=== PATIENT | female | born 2005 | race African-American/Black ===

== ENCOUNTER 2024-10-17 13:25 | Emergency (ER) | payer OTHER, SELFPAY ==
--- NOTE | ~2024-10-17 | XR_ITS ---
EXAMINATION: XR CHEST CLINICAL INFORMATION: shortness of breath COMPARISON: None available. TECHNIQUE: 2 views of the chest were obtained. FINDINGS: Findings suggest a focal, peripheral right lower lobe interstitial and alveolar infiltrate, consistent with pneumonia. The left lung appears clear. No effusion or pneumothorax is seen. The cardiac assess structures, mediastinum, diaphragm, bones, and soft tissues appear unremarkable. XR/XR chest 2V IMPRESSION: Suspect right lower lobe pneumonia. Electronically signed by: Arvind Castelan MD 10/17/2024 03:52 PM [facility]
--- NOTE | 2024-10-17 13:33 | ED.GENADULT ---
HPI - General Adult General Chief complaint: Upper Respiratory Symptoms Stated complaint: asthma Time Seen by Provider: 10/17/24 13:47 Source: patient Mode of arrival: ambulatory Limitations: no limitations History of Present Illness ED Provider: Samantha Mauricio NP HPI narrative: Patient is a 18-year-old female who presents emergency department for evaluation. She states she has been having symptoms that she was concern for an asthma exacerbation of for the past 2 weeks including nonproductive cough, shortness of breath, difficulty breathing, intermittent chest pain that was brought on during periods of cough. She has been experiencing some wheezing as well. Unfortunately she does not have any nebulizer solution, and her albuterol inhaler has . She was recently seen in her automotive glass specialist's office by nurse practitioner 2 days ago 10/15/2024. She states that this provider was unable to prescribe her nebulizer solution? because she does not have the right license, and she referred me to urgent care to get a prescription for this . she was however provided a prescription for prednisone which she has been taking 40 mg daily for 5 days. She went to urgent care today as she has still been experiencing difficulty breathing, she received a nebulizer treatment there, reports that there was concern for pneumonia on her x-ray and she was referred to the emergency department for further evaluation. Denies fevers, chills, headache, dizziness, neck pain, neck stiffness, nausea, vomiting, abdominal pain, numbness or tingling of the extremities, genitourinary symptoms. On 10/15/2024 at the automotive glass specialist's office she was also given a prescription for Bactrim for treatment of the urinary tract infection though she was asymptomatic. She states that she has been experiencing a urinary tract infection/ Kidney infection monthly since June, she was not experiencing any urinary symptoms at this time. it is unclear whether she had a urine culture sent, she does show me results in her patient portal which indicate 2+ leukocyte esterase otherwise no additional concerning findings for urinary tract infection. she has had STI testing which by her account was negative. She is not having any abnormal pelvic pain or discharge. No dysuria or hematuria or urinary frequency. Related Data Previous Rx's ?Medication ?Instructions ?Recorded albuterol sulfate 2.5 mg/3 mL 2.5 mg (3 mL) inhalation Q4-6H PRN 10/17/24 (0.083 %) solution for nebulization shortness of breath or wheezing #180 mL albuterol sulfate 90 mcg/actuation 2 puff inhalation Q4-6H PRN 10/17/24 aerosol inhaler shortness of breath or wheezing #8.5 grams amoxicillin 500 mg capsule 1,000 mg (2 x 500 mg) PO TID 5 10/17/24 days #30 caps azithromycin 250 mg tablet See Rx Instructions PO .COMPLEX #6 10/17/24 tabs Allergies Allergy/AdvReac Type Severity Reaction Status Date / Time No Known Allergies Allergy Verified 10/17/24 13:40 Review of Systems Review of Systems: Yes all other systems are reviewed and are negative [facility] Past Medical History Attestation statement: The following information was validated with the patient. Source: old records reviewed Social History Social History Advance Directives: No Advance Directives Information Provided: Yes Do you have a plan to hurt others: No Plan Physical Exam ED Vital Signs: Vital Signs - 24 hr 10/17/24 13:35 10/17/24 14:49 10/17/24 16:06 Temperature 98.3 F 98.2 F 98.2 F Pulse Rate 97 95 99 Respiratory Rate 16 16 16 Blood Pressure 131/76 107/61 109/66 Pulse Oximetry 98 97 95 Oxygen Delivery Method Room Air Room Air Room Air 10/17/24 16:10 Temperature 98.2 F Pulse Rate 99 Respiratory Rate 16 Blood Pressure 109/66 Pulse Oximetry 95 Oxygen Delivery Method Room Air BMI result Body Mass Index 21.3 Appearance: Alert.?Oriented to person, place and time. No acute distress.?Normal affect. Eyes: Pupils equal, round and reactive to light.? ENT: TM normal bilaterally. Pharynx normal.?? Neck: Normal inspection.? Neck supple.??No cervical adenopathy CVS: Heart sounds normal. Normal heart rate and rhythm.? Pulses normal.?? Respiratory: No respiratory distress. no stridor. No retractions.? Lung sounds with rhonchi bilaterally, mild expiratory wheezing? Abdomen: Soft and non-tender. Normoactive bowel sounds. Skin: Skin warm and dry.? Normal skin color.? ? Extremities: No lower extremity edema.? Neuro: Moves all extremities spontaneously. Sensation intact bilaterally. No motor deficits. Ambulates with normal steady gait. Course Course Course Narrative: RME, this is a rapid medical exam performed by Efren Betts please refer to primary provider for complete H&P- this is a 18-year-old female presenting for evaluation of shortness of breath. she has had coughing and wheezing for 2 weeks. She was on Bactrim for a UTI. I received a phone call from urgent care that the patient had a right lower lobe pneumonia on x-ray. The patient's oxygen saturation is 98% on room air. Plan for repeat x-ray and labs. Medical Decision Making Medical Decision Making [facility] Narrative: Patient is a 18-year-old female past medical history of asthma, presenting for evaluation of respiratory symptoms. COVID-19 /influenza/ RSV testing Are negative. At this time history and physical exam not consistent with ACS she has no risk factors, unlikely pulmonary embolism; Wells score with low risk. Overall is Well-appearing, nontoxic, afebrile, no tachycardia or tachypnea/hypoxia. Speaking clear full sentences, ambulatory with steady gait. chest x-ray w reveals a right lower lobe pneumonia for which prescription for amoxicillin and azithromycin will be sent to pharmacy. serum labs revealed leukocytosis of 15,800 with left shift, lactic acid is 2.1 though I suspect this is secondary to type B with albuterol usage. Do not feel as though she meets criteria for inpatient level of care at this time. Discussed conservative treatment including rest, hydration, Tylenol/ibuprofen as needed for fever and body aches, saline nasal spray, humidifier, [id number] cold medication. Advised to follow-up with primary care provider as needed, discussed reasons to return back to the emergency department. All questions were answered. Patient discharged home in stable condition. Differential Diagnosis Differential Diagnoses: The differential diagnosis associated with the presentation includes ( See narrative above) Admission/Observation Consideration of admission/observation: Escalation of care including admission/observation considered ( see narrative above) Lab Data [facility] Lab Attestation statement: I reviewed the patient's lab results. ( see narrative above) Leukocytosis, no electrolyte derangement, no STEPHIE. hCG negative. 10/17/24 13:51 10/17/24 13:51 Labs: Lab Results 10/17/24 Range/Units 13:51 WBC 15.8 H (4.8-10.8) X10*3/uL RBC 5.01 (4.20-5.50) X10*6/uL Hgb 15.9 (12.0-16.0) g/dl Hct 45.0 (37.0-47.0) % MCV 89.8 (80.0-98.0) fL MCH 31.7 (27.0-33.0) pg MCHC 35.3 H (31.0-35.0) g/dl RDW 11.9 (11.0-16.0) % Plt Count 395 (160-400) X10*3/uL MPV 9.3 L (9.4-12.3) fL Immature Gran % (Auto) 0.9 H (0.0-0.4) % Neut % (Auto) 82.9 H (45-73) % Lymph % (Auto) 10.9 L (20-40) % [place] % (Auto) 3.9 (2-11) % Eos % (Auto) 1.0 (0-4) % Baso % (Auto) 0.4 (0-2) % Lymph # (Auto) 1.7 (1.2-4.9) X10*3/uL [place] # (Auto) 0.6 (0.1-1.2) X10*3/uL Eos # (Auto) 0.2 (0.0-0.4) X10*3/uL Baso # (Auto) 0.1 (0.0-0.2) X10*3/uL Abs Immat Gran (auto) 0.14 H (0.00-0.03) X10*3/uL Absolute Neuts (auto) 13.1 H (2.0-8.3) x10*3/uL Absolute Nucleated RBC 0.000 (0.0-0.012) X10*3/uL Nucleated RBC % (auto) 0.0 (0.0-0.2) /100WBC Sodium 137 (135-145) mmol/L Potassium 4.1 (3.3-5.1) mmol/L Chloride 105 (96-108) mmol/L Carbon Dioxide 22 (22-29) mmol/L Anion Gap 14 (12-20) BUN 6 L (9-16) mg/dL Creatinine 0.79 (0.5-1.4) mg/dL Estim Creat Clear Calc 113.8 Estimated GFR > 60 Random Glucose 120 H (60-115) mg/dL Lactic Acid 2.1 H* (0.5-2.0) mmol/L Calcium 10.0 (8.4-10.2) mg/dL Total Bilirubin 0.2 (0.0-1.0) mg/dL AST 34 H (5-31) U/L ALT 20 (0-31) U/L Alkaline Phosphatase 64 (39-117) U/L Total Protein 8.0 (6.5-8.0) g/dL Albumin 4.4 (3.5-5.0) g/dL Lipase 26 (8-78) U/L Beta HCG, Quant < 2 mIU/mL Influenza Type A (PCR) NEGATIVE (Negative) Influenza Type B (PCR) NEGATIVE (Negative) RSV RNA Qual (PCR) NEGATIVE (Negative) SARS-CoV-2 RNA (RT-PCR) NEGATIVE (Negative) Independent Interpretation I performed an independent interpretation of an: Plain X-Ray ( See narrative above) Radiology Impression Discussion of test interpretation with radiology: I have reviewed the radiologist's reading. Radiologist Impression: XR/XR chest 2V IMPRESSION: Suspect right lower lobe pneumonia. External Record Review External record reviewed: Outpatient record Prescription Management I considered prescription management with: Pain Medication ( acetaminophen/ibuprofen) Discharge Plan Discharge Clinical Impression: Community acquired pneumonia Patient Disposition: Home, Self-Care Additional Instructions: As discussed, your history and physical examination today is concerning for right lower lobe pneumonia. I have sent prescriptions for 2 antibiotics to your pharmacy including amoxicillin and azithromycin, please complete the entire course as prescribed do not skip any doses or stop taking early even if you begin to feel better. Complete the prednisone course that was prescribed you from your automotive glass specialist office. It is very important to use a back-up form of control, such as barrier condoms/abstinence, while on antibiotics and for one week after as they may be ineffective in preventing while on the antibiotics. While taking antibiotics, please include probiotics that can be found over the counter or yogurt in your diet. If symptoms of a yeast infection or diarrhea occur, please call the office to Additionally prescriptions for an albuterol inhaler as well as albuterol nebulizer solution have been sent to your pharmacy as well. Please seek re-evaluation with your automotive glass specialist for any persistent symptoms. Prescriptions: New amoxicillin 500 mg capsule 1,000 mg PO TID 5 Days Qty: 30 0RF azithromycin 250 mg tablet See Rx Instructions .ROUTE .COMPLEX Qty: 6 0RF Rx Instructions: For 250 mg dose pack: take 500 mg today (day 1), then 250 mg for 4 days (days 2-5) albuterol sulfate 2.5 mg /3 mL (0.083 %) solution for nebulization 2.5 mg inhalation Q4-6H PRN (Reason: shortness of breath or wheezing) Qty: 180 0RF albuterol sulfate 90 mcg/actuation HFA aerosol inhaler 2 puff inhalation Q4-6H PRN (Reason: shortness of breath or wheezing) Qty: 8.5 0RF Referrals: Physician,Unknown J [Primary Care Provider] - Interventions: ED Discharge Assessment Last Done: 10/17/24 16:10 Discharge Date/Time: 10/17/24 16:11 Print Language: [place]
[2024-10-17 13:35] VITALS: BP 131/76; PULSE 97; RESP 16; TEMP 36.8; O2SAT 98; BMI 21.3
[2024-10-17 13:56] LABS: MANUAL DIFF FLAG NO
[2024-10-17 13:58] LABS: Basophils Absolute Auto 0.1 X10*3/uL (0.0-0.2); Basophils Percent Auto 0.4 % (0-2); Eosinophils Absolute Auto 0.2 X10*3/uL (0.0-0.4); Hemoglobin 15.9 g/dl (12.0-16.0); Imm Gran Abs Auto 0.14 X10*3/uL (0.00-0.03); Imm Gran Pct Auto 0.9 % (0.0-0.4); Lymphocytes Absolute Auto 1.7 X10*3/uL (1.2-4.9); Lymphocytes Percent Auto 10.9 % (20-40); Mean Corpuscular HGB Conc 35.3 g/dl (31.0-35.0); Mean Corpuscular Hemoglobin 31.7 pg (27.0-33.0); Mean Corpuscular Volume 89.8 fL (80.0-98.0); Mean Platelet Volume 9.3 fL (9.4-12.3); Monocytes Absolute Auto 0.6 X10*3/uL (0.1-1.2); Monocytes Percent Auto 3.9 % (2-11); Neutrophils Absolute Auto 13.1 x10*3/uL (2.0-8.3); Neutrophils Percent Auto 82.9 % (45-73); Platelet Count 395 X10*3/uL (160-400); Red Blood Count 5.01 X10*6/uL (4.20-5.50); Red Cell Distribution Width 11.9 % (11.0-16.0); White Blood Count 15.8 X10*3/uL (4.8-10.8)
[2024-10-17 14:12] LABS: Alanine Aminotransferase 20 U/L (0-31); Albumin Level 4.4 g/dL (3.5-5.0); Alkaline Phosphatase 64 U/L (39-117); Anion Gap 14 (12-20); Aspartate Amino Transferase 34 U/L (5-31); Bilirubin Total 0.2 mg/dL (0.0-1.0); Blood Urea Nitrogen 6 mg/dL (9-16); Carbon Dioxide 22 mmol/L (22-29); Chloride 105 mmol/L (96-108); Creatinine Clr Calc Pharmacy 113.8; Estimated Glomerular Filt Rate > 60; Glucose Random 120 mg/dL (60-115); Lipase 26 U/L (8-78); Potassium 4.1 mmol/L (3.3-5.1); Sodium 137 mmol/L (135-145)
[2024-10-17 14:16] LABS: Lactic Acid 2.1 mmol/L (0.5-2.0)
[2024-10-17 14:19] LABS: HCG Quantitative < 2 mIU/mL
[2024-10-17 14:38] LABS: Influenza A PCR NEGATIVE (Negative); Influenza B PCR NEGATIVE (Negative); Resp Syncy Virus RNA Qual PCR NEGATIVE (Negative); SARS COV2 PCR INHOUSE NEGATIVE (Negative)
[2024-10-17 14:49] VITALS: BP 107/61; PULSE 95; RESP 16; TEMP 36.8; O2SAT 97
[2024-10-17 15:54] LABS: Reflex Lactate? Lactic Acid Added
--- NOTE | 2024-10-17 16:00 | PC.NURSE ---
Per provider 2nd lactic not needed.
[2024-10-17 16:06] VITALS: BP 109/66; PULSE 99; RESP 16; TEMP 36.8; O2SAT 95
[2024-10-17 16:10] VITALS: BP 109/66; PULSE 99; RESP 16; TEMP 36.8; O2SAT 95
== END 2024-10-17 16:11 | disposition home or self-care (01) ==
PROVIDERS: Physician Assistant; Emergency Provider Emergency Medicine
DX: J18.8 Other pneumonia, unspecified organism (principal); Z03.818 Encounter for observation for suspected exposure to other biological agents ruled out; R06.02 Shortness of breath; J45.909 Unspecified asthma, uncomplicated
CPT/HCPCS: 0241U; 36415; 71046; 80053; 83605; 83690; 84702; 85025; 87040; 99283; 99284

== ENCOUNTER 2025-08-16 15:38 | Emergency (ER) | payer OTHER, SELFPAY ==
--- OUTSIDE RECORDS SUMMARY | 2025-08-15 12:20 | XMS_ITS | Encounter Summary ---
Author Organization [facility] Address [address] [place] [address] Care Team Providers Care Analog Ic Design Architect Name Role Phone Unavailable Primary Care Provider Unavailabl e Reason for Visit * Reason Comments Chest Pain Encounter Details Date Type Department Care Team (Late st Contact Info) Description 08/15/2025 12:20 PM EDT - 08/15/2025 3:45 PM EDT Emergency [facility] Emergency [address] [place] [address] Marcos Huddleston MD [address] [place] [address] Chest pain, unspecified type (Primary Dx) Discharge Disposition: Home or Self Care Social History Tobacco Use Types Packs/Day Years Used Date Smoking Tobacco: Unknown Tobacco Cessation:Counseling Given: Not Answered Comments Unknown Sex and Gender Information Value Date Recorded Sex Assigned at Not on file Legal Sex Female 10:26 PM EST Gender Identity Not on file Sexual Orientation Not on file documented as of this encounter Last Filed Vital Signs Vital Sign Reading Time Taken Comments Blood Pressure 127/69 08/15/2025 1:30 PM EDT Pulse 97 08/15/2025 2:40 PM EDT Temperature 36.9 C (98.4 F) 08/15/2025 12:27 PM EDT Respiratory Rate 18 08/15/2025 12:27 PM EDT Oxygen Saturation 100% 08/15/2025 2:40 PM EDT Inhaled Oxygen Concentration - - Weight 61.2 kg (135 lb) 08/15/2025 12:32 PM EDT Height 175.3 cm (5' 9 ) 08/15/2025 12:32 PM EDT Body Mass Index 19.94 08/15/2025 12:32 PM EDT documented in this encounter Discharge Summaries * Tahir Moralez RN - 08/15/2025 3:30 PM EDT Pt seen and cleared for d/c by ED provider, d/c instructions reviewed. Rx'd medication education provided, all questions answered. Pt seen ambulating out of department with ease. documented in this encounter Discharge Disposition Disposition Code Departure Means Destination Comment s Home or Self Care documented in this encounter Progress Notes * Tahir Moralez RN - 08/15/2025 12:25 PM EDT BIBA from for midsternal cp that has been intermittent x 1 month, with a sudden onset of shortness of breath. Endorses blurred vision and dizziness. Anxious appearing, moderate tremor of lower extremities noted while assessing pt. Asthma hx. Pt also reports various psych diagnoses also. Denies SI/HI. Sent from for PE r/o. Ambulatory, a/ox3 * Marcos Huddleston MD - 08/15/2025 12:18 PM EDT HPI Chief Complaint Patient presents with Chest Pain 19-year-old female with a past medical history as below presenting with chest pain. Patient endorses symptoms intermittently for the past 1 month associated with shortness of breath. Patient denies any fever, chills, abdominal pain, back pain, headache, urinary or bowel symptoms, numbness or weakness in the upper and lower extremities. Patient endorses intermittent blurry vision in the past, however is asymptomatic at this time. Patient denies any prolonged travel, immobilization, or recent surgery. Patient did have her wisdom tooth extracted 1 month prior, however endorses appropriate healing, and reduction in pain. Patient is also able to eat and drink appropriately, however has endorsedpoor appetite. Patient also denies any pelvic pain, vaginal bleeding, vaginal discharge, urinary orbowel symptoms. Patient was on hormonal therapy (testosterone) for gender dysmorphia, however no longer is taking it. Review of system otherwise negative. Escobar Coma Scale Score: 15 Patient History Past Medical History: Diagnosis Date Anxiety Asthma Borderline personality disorder in adult ([facility] V24, [facility] V28) PTSD (post-traumatic stress disorder) No past surgical history on file. No family history on file. Social History Tobacco Use Smoking status: Unknown Smokeless tobacco: Not on file Substance Use Topics Alcohol use: Not on file Drug use: Not on file Review of Systems Review of Systems Constitutional: Negative for chills and fever. HENT: Negative for rhinorrhea and sore throat. Eyes: Negative for pain. Respiratory: Positive for shortness of breath. Negative for cough, choking, chest tightness and wheezing. Cardiovascular: Positive for chest pain. Negative for leg swelling. Gastrointestinal: Negative for abdominal pain, constipation, diarrhea, nausea and vomiting. Genitourinary: Negative for difficulty urinating, dysuria, flank pain, hematuria and pelvic pain. Musculoskeletal: Negative for back pain and neck pain. Skin: Negative for rash. Neurological: Negative for dizziness, weakness, light-headedness, numbness and headaches. Psychiatric/Behavioral: Negative for agitation, behavioral problems, confusion and hallucinations. The patient is not nervous/anxious and is not hyperactive. Physical Exam ED Triage Vitals [08/15/25 1227] Temp Heart Rate Resp BP 36.9 ??C (98.4 ??F) 110 18 109/76 SpO2 Temp Source Heart Rate Source Patient Position 100 % Oral Monitor Lying BP Location FiO2 (%) Right arm -- Physical Exam Constitutional: Appearance: Normal appearance. HENT: Head: Normocephalic. Nose: Nose normal. Eyes: Extraocular Movements: Extraocular movements intact. Pupils: Pupils are equal, round, and reactive to light. Cardiovascular: Rate and Rhythm: Tachycardia present. Pulmonary: Effort: Pulmonary effort is normal. Breath sounds: Normal breath sounds. Abdominal: General: Abdomen is flat. There is no distension. Palpations: Abdomen is soft. There is no mass. Tenderness: There is no abdominal tenderness. Hernia: No hernia is present. Musculoskeletal: General: No swelling or tenderness. Normal range of motion. Cervical back: Normal range of motion. Skin: General: Skin is warm. Capillary Refill: Capillary refill takes less than 2 seconds. Neurological: General: No focal deficit present. Mental Status: She is alert and oriented to person, place, and time. Psychiatric: Mood and Affect: Mood normal. ED Course & MDM ED Course as of 08/16/25930 Sat Aug 15, 2025 1351 CBC within normal limits. BMP within normal limits. Troponin negative. D- dimer negative. Magnesium within normal limits. [OR] 1427 Of note, 1 troponin sufficient, because patient endorses intermittent chest pain for 1 month, there was no acute worsening today. Patient with improved vitals after 2 L of IV fluids. Chest x-raywithin normal limits. [OR] 1513 TSH pending, per lab, machine down and will not be back until tomorrow. On chart review, priorTSH (2023) within normal limits. Patient told to call ER tomorrow to follow up on result. With shared decision making, plan for discharge, patient provided with strict return precautions. Vitals stable. HEART score - low. [OR] ED Course User Index [OR] Marcos Huddleston MD Clinical Impressions as of 08/16/25 09 Chest pain, unspecified type Medical Decision Making Based on this clinical presentation, this is concerning for chest pain, however plan to rule out ACS versus PE. No concern for pneumonia, patient denies any cough, fever, or chills. No concern for asthma exacerbation, lungs clear to auscultation bilaterally. Low concern for acute cardiac etiology, EKG notable for sinus tachycardia. Patient denies any recent history of URI or GI illnesses, therefore low concern for myocarditis versus pericarditis. Patient does appear anxious on exam, endorses feeling nervous concerned that there is possibly something going on. However, patient denies any SI orHI. Patient hemodynamically stable. Procedures Marcos Huddleston MD 08/15/25 1304 Marcos Huddleston MD 08/16/25 0931 documented in this encounter Miscellaneous Notes * ED Bed Hold Note - Hien Issa RN - 08/15/2025 12:20 PM EDT Bed: -15 Expected date: 08/15/25 Expected time: Means of arrival: Comments: 19 y/o SOB & tachy, r/o PE from urgent care, dizziness & blurry vision x1m documented in this encounter Plan of Treatment Not on file documented as of this encounter Procedures Procedure Name Priority Date/Time Associated Diagnosis Comments XR CHEST 1 VIEW STAT 08/15/2025 1:00 PM EDT ECG 12-LEAD STAT 08/15/2025 12:48 PM EDT TROPONIN I HIGH SENSITIVITY STAT 08/15/2025 12:42 PM EDT THYROID STIMULATING HORMONE WITH REFLEX TO FREE T4 AND FREE T3 STAT Add-on 08/15/2025 12:42 PM EDT CBC WITH AUTO DIFFERENTIAL STAT 08/15/2025 12:42 PM EDT D-DIMER STAT 08/15/2025 12:42 PM EDT CBC AND DIFFERENTIAL STAT 08/15/2025 12:42 PM EDT HCG, QUANTITATIVE STAT 08/15/2025 12: 42 PM EDT MAGNESIUM Add-On 08/15/2025 12:42 PM EDT BASIC METABOLIC PANEL STAT 08/15/2025 12:42 PM EDT documented in this encounter Results * XR Chest 1 View (08/15/2025 1:00 PM EDT) Anatomical Region Laterality Modality Body Radiographic Crystal ging 08/15/2025 1:18 PM EDT Impressions 08/15/2025 1:19 PM EDT No acute chest disease demonstrated -------- FINAL REPORT -------- Dictated By: Jose Mena Dictated Date: 08/15/2025 13:18 ET Assigned Physician: Jose Mena Reviewed and Electronically Signed By: Jose Mena Signed Date: 08/15/2025 13:19 ET Workstation ID: [id number] Transcribed By: Self Edit Transcribed Date: 08/15/2025 13:18 ET Narrative 08/15/2025 1:19 PM EDT EXAMINATION: CHEST CLINICAL INFORMATION: Chest pain COMPARISON: None. TECHNIQUE: Portable frontal sitting view of the chest FINDINGS: The cardiac size is within normal limits. The mediastinum, cande, vasculature, lungs and visualized pleural margins are within normal limits. No suspicious focal bony lesion. Procedure Note Jose Mena MD - 08/15/2025 EXAMINATION: CHEST CLINICAL INFORMATION: Chest pain COMPARISON: None. TECHNIQUE: Portable frontal sitting view of the chest FINDINGS: The cardiac size is within normal limits. The mediastinum, cande,vasculature, lungs and visualized pleural margins are within normallimits. No suspicious focal bony lesion. IMPRESSION: No acute chest disease demonstrated -------- FINAL REPORT -------- Dictated By: Jose Mena Dictated Date: 08/15/2025 13:18 ET Assigned Physician: Jose Mena Reviewed and Electronically Signed By: Jose Mena Signed Date: 08/15/2025 13:19 ET Workstation ID: [id number] Transcribed By: Self Edit Transcribed Date: 08/15/2025 13:18 ET Marcos Huddleston MD IMG XR PROCEDURES Final Re sult * 12-Lead ECG (08/15/2025 12:48 PM EDT) Ventricular Rate ECG 130 BPM GEMUSE Atrial Rate 130 BPM GEMUSE P-R Interval 156 ms GEMUSE QRS Duration 72 ms GEMUSE Q-T Interval 270 ms GEMUSE QTc 397 ms GEMUSE P Wave [place] 71 degrees GEMUSE R [place] 59 degrees GEMUSE T Walton -18 degrees GEMUSE ECG Interpretation Sinus tachycardia Right atrial enlargement Possible Inferior infarct , age undetermined Cannot rule out Anterior infarct , age undetermined Abnormal ECG No previous ECGs available Confirmed by Matthew RUBI JAMES ([id number]) on 08/15/2025 10:28:03 PM GEMUSE 08/15/2025 12:4 8 PM EDT 08/15/2025 10:28 PM EDT us Marcos Huddleston MD ECG ORDERABLES Final Resu lt Performing Organization Address [facility] Co de Phone Number GEMUSE * Magnesium (08/15/2025 12:42 PM EDT) Pathologist [facility] [place] Magnesium 2.0 1.9 - 2.6 mg/dL LAB CHEMISTRY METHOD 08/15/2025 1:26 PM EDT [facility] Blood Venous blood specimen / Unknown Venipuncture / Unknown 08/15/2025 12:42 PM EDT 08/15/2025 12:55 PM EDT us Marcos Huddleston MD LAB BLOOD ORDERABLES Final Result Performing Organization Address [facility] de Phone Number [facility] [address] [place] [address], [place] [phone] * Thyroid stimulating hormone with reflex to free t4 and free t3 (TSH Reflex) (08/15/2025 12:42 PM EDT) [facility] TSH 0.51 0.40 - 4.00 mcIU/mL LAB CHEMISTRY METHOD 08/16/2025 8:07 AM EDT [facility] Blood Venous blood specimen / Unknown Venipuncture / Unknown 08/15/2025 12:42 PM EDT 08/15/2025 12:55 PM EDT us Marcos Huddleston MD LAB BLOOD ORDERABLES Final Result Performing Organization Address [facility] Co de Phone Number [facility] [address] [place] [address], [place] [phone] * (ABNORMAL) CBC auto differential (08/15/2025 12:42 PM EDT) Pathologist [facility] [place] WBC 10.2 4.8 - 10.8 K/[facility] LAB HEMETOLOGY METHOD 08/15/2025 1:04 PM EDT [facility] RBC 4.70 3.80 - 4.80 M/mcL LAB HEMETOLOGY METHOD 08/15/2025 1:04 PM EDT [facility] Hemoglobin 14.2 11.5 - 16.0 g/dL LAB HEMETOLOGY METHOD 08/15/2025 1:04 PM [facility] Hematocrit 42.8 35.0 - 47.0 % LAB HEMETOLOGY METHOD 08/15/2025 1:04 PM [facility] MCV 91.1 79.0 - 98.0 FL LAB HEMETOLOGY METHOD 08/15/2025 1:04 PM [facility] MCH 30.2 27.0 - 32.0 pcg LAB HEMETOLOGY METHOD 08/15/2025 1:04 PM [facility] MCHC 33.2 32.0 - 37.0 g/dL LAB HEMETOLOGY METHOD 08/15/2025 1:04 PM [facility] RDW 12.2 11.0 - 15.0 % LAB HEMETOLOGY METHOD 08/15/2025 1:04 PM [facility] Platelets 268 130 - 400 K/mcL LAB HEMETOLOGY METHOD 08/15/2025 1:04 PM [facility] MPV 11.0 7.0 - 11.0 FL LAB HEMETOLOGY METHOD 08/15/2025 1:04 PM [facility] NRBC 0.0 <1.0 % LAB HEMETOLOGY METHOD 08/15/2025 1:04 PM [facility] NRBC Absolute 0.00 <0.10 K/mcL LAB HEMETOLOGY METHOD 08/15/2025 1:04 PM [facility] Neutrophils Relative 64.3 % LAB HEMETOLOGY METHOD 08/15/2025 1:04 PM [facility] Lymphocytes Relative 20.5 % LAB HEMETOLOGY METHOD 08/15/2025 1:04 PM EDT [facility] Monocytes Relative 7.8 % LAB HEMETOLOGY METHOD 08/15/2025 1:04 PM EDT [facility] Eosinophils Relative 6.4 % LAB HEMETOLOGY METHOD 08/15/2025 1:04 PM EDT [facility] Basophils Relative 0.8 % LAB HEMETOLOGY METHOD 08/15/2025 1:04 PM EDT [facility] Immature Granulocytes Relative 0.2 % LAB HEMETOLOGY METHOD 08/15/2025 1:04 PM EDT [facility] Neutrophils Absolute 6.54 1.50 - 7.00 K/mcL LAB HEMETOLOGY METHOD 08/15/2025 1:04 PM EDT [facility] Lymphocytes Absolute 2.08 1.00 - 5.00 K/mcL LAB HEMETOLOGY METHOD 08/15/2025 1:04 PM EDT [facility] Monocytes Absolute 0.79 0.20 - 1.00 K/mcL LAB HEMETOLOGY METHOD 08/15/2025 1:04 PM T [facility] Eosinophils Absolute 0.65(H) 0.00 - 0.50 K/mcL LAB HEMETOLOGY METHOD 08/15/2025 1:04 PM EDT [facility] Basophils Absolute 0.08 0.00 - 0.20 K/mcL LAB HEMETOLOGY METHOD 08/15/2025 1:04 PM EDT [facility] Immature Granulocytes Absolute 0.02 0.00 - 0.03 K/mcL LAB HEMETOLOGY METHOD 08/15/2025 1:04 PM [facility] Blood Venous blood specimen / Unknown Venipuncture / Unknown 08/15/2025 12:42 PM EDT 08/15/2025 12:55 PM EDT Marcos Huddleston MD LAB BLOOD ORDERABLES Final Result Performing Organization Address [facility]/ZIP Co de Phone Number [facility] [address] [place] [address], * HCG, quantitative (08/15/2025 12:42 PM EDT) hCG Quant <1 mIU/mL LAB CHEMISTRY METHOD 08/15/2025 1:28 PM EDT [facility] Blood Venous blood specimen / Unknown Venipuncture / Unknown 08/15/2025 12:42 PM EDT 08/15/2025 12:55 PM EDT Narrative [facility] - 08/15/2025 1:28 PM EDT Quantitative HCG Reference Ranges Time after Conception MIU/ML 0.2-1 Week 5-50 1-2 Weeks 50-500 2-3 Weeks 100-5,000 3-4 Weeks 500-10,000 4-5 Weeks 1,000-50,000 5-6 Weeks 10,000-100,000 6-8 Weeks 15,000-200,000 2-3 Months 10,000-100,000 2nd Trimester 1,000-94,000 3rd Trimester 2,500-90,000 Non- Females 1-3 us Marcos Huddleston MD LAB BLOOD ORDERABLES Final Result [facility] [address] [place] [address], * D-Dimer (Quantitative) (08/15/2025 12:42 PM EDT) D-Dimer, Quant (D-DU) <150 <=230 ng/mL DDU LAB COAGULATION METHOD 08/15/2025 1:42 PM EDT [facility] Blood Venous blood specimen / Unknown Venipuncture / Unknown 08/15/2025 12:42 PM EDT 08/15/2025 12:55 PM EDT Narrative [facility] - 08/15/2025 1:42 PM EDT D-Dimer <230 ng/mL (D-Dimer units) is the threshold for exclusion of DVT/PE. D-Dimer may be elevated in: Critically ill, severely infected, trauma patients, DIC, acute CVA, acute WA, unstable angina, AF, old age, , and smoking. D-Dimer may be decreased with: Initiation of heparin therapy and oral anticoagulants. us Marcos Huddleston MD LAB BLOOD ORDERABLES Final Result Performing Organization Address [facility] Co de Phone Number [facility] [address] [place] [address], * Troponin I High Sensitivity (08/15/2025 12:42 PM EDT) [facility] High Sensitivity Troponin I <3 <=54 ng/L LAB CHEMISTRY METHOD 08/15/2025 1:24 PM EDT [facility] Blood Venous blood specimen / Unknown Venipuncture / Unknown 08/15/2025 12:42 PM EDT 08/15/2025 12:55 PM EDT Narrative [facility] - 08/15/2025 1:24 PM EDT High levels of biotin in samples may falsely decrease hsTroponin values. Use caution when interpreting hsTroponin results in patients taking biotin who exhibit renal impairment (eGFR <60) or in patients taking more than 20 mg/day of biotin. us Marcos Huddleston MD LAB BLOOD ORDERABLES Final Result Performing Organization Address [facility]/ZIP Co de Phone Number [facility] [address] [place] [address], [place] [phone] * Basic Metabolic Panel (BMP) (08/15/2025 12:42 PM EDT) Sodium 138 133 - 145 mmol/L LAB CHEMISTRY METHOD 08/15/2025 1:26 PM [facility] Potassium 4.0 3.5 - 5.5 mmol/L LAB CHEMISTRY METHOD 08/15/2025 1:26 PM [facility] Chloride 106 96 - 110 mmol/L LAB CHEMISTRY METHOD 08/15/2025 1:26 PM [facility] CO2 26 21 - 32 mmol/L LAB CHEMISTRY METHOD 08/15/2025 1:26 PM [facility] Anion Gap 6 3 - 11 LAB CHEMISTRY METHOD 08/15/2025 1:26 PM [facility] Glucose 100 70 - 100 mg/dL LAB CHEMISTRY METHOD 08/15/2025 1:26 PM [facility] BUN 6 5 - 25 mg/dL LAB CHEMISTRY METHOD 08/15/2025 1:26 PM [facility] Creatinine 0.62 0.50 - 1.10 mg/dL LAB CHEMISTRY METHOD 08/15/2025 1:26 PM [facility] eGFR 130 >=60 mL/min/1. 73m2 LAB CHEMISTRY METHOD 08/15/2025 1:26 PM [facility] Comment:Calculation based on the Chronic Kidney Disease Epidemiology Collaboration (CKD-EPI) equation refit without adjustment for race. BUN/Creatinine Ratio 9.7 LAB CHEMISTRY METHOD 08/15/2025 1:26 PM [facility] Calcium 9.5 8.5 - 10.5 mg/dL LAB CHEMISTRY METHOD 08/15/2025 1:26 PM [facility] Blood Venous blood specimen / Unknown Venipuncture / Unknown 08/15/2025 12:42 PM EDT 08/15/2025 12:55 PM EDT Marcos Huddleston MD LAB BLOOD ORDERABLES Final Result DONYA MONTES ND ([facility] [address] [place] [address], documented in this encounter Visit Diagnoses Diagnosis Chest pain, unspecified type- Primary documented in this encounter Administered Medications Inactive Administered Medications - up to 3 most recent administrations Medication Order MAR Action Action Date Dose Rate Site LORazepam (ATIVAN) injection 1 mg 1 mg, intravenous, Once, On 08/15/25 at 1252, For 1 dose, Prior to IV use, lorazepam injection should be DILUTED with an equal volume of compatible solution; Rate of administration should NOT exceed 2 mg/min. Given 08/15/2025 1:06 PM EDT 1 mg sodium chloride 0.9 % bolus 1,000 mL 1,000 mL, intravenous, at 1,000 mL/hr, Administer over 1 Hours, Once, On 08/15/25 at 1232, For 1 dose New Bag 08/15/2025 12:48 PM EDT 1,000 mL 1000 mL/hr sodium chloride 0.9 % bolus 1,000 mL 1,000 mL, intravenous, at 1,000 mL/hr, Administer over 1 Hours, Once, On 08/15/25 at 1352, For 1 dose New Bag 08/15/2025 1:58 PM EDT 1,000 mL 1000 mL/hr documented in this encounter Active and Recently Administered Medications Times are shown in EDT. Scheduled Medication Order 08/13/2025 08/14/2025 08/15/2025 LORazepam (ATIVAN) injection 1 mg (COMPLETED) 1 mg, intravenous, Once, On 08/15/25 at 1252, For 1 dose, Prior to IV use, lorazepam injection should be DILUTED with an equal volume of compatible solution; Rate of administration should NOT exceed 2 mg/min. 1306 (Given - Provid er: Hien Issa RN) sodium chloride 0.9 % bolus 1,000 mL (COMPLETED) 1,000 mL, intravenous, at 1,000 mL/hr, Administer over 1 Hours, Once, On 08/15/25 at 1232, For 1 dose 1248 (New Bag - Prov ider: Tahir Moralez RN)1352 (Stopped - Provider: Tahir Moralez RN) sodium chloride 0.9 % bolus 1,000 mL (COMPLETED) 1,000 mL, intravenous, at 1,000 mL/hr, Administer over 1 Hours, Once, On 08/15/25 at 1352, For 1 dose 1358 (New Bag - Prov ider: Tahir Moralez RN)1517 (Stopped - Provider: Tahir Moralez RN) documented in this encounter
--- NOTE | ~2025-08-16 | CT_ITS ---
CLINICAL HISTORY: New seizure CT head without contrast Comparison: None provided Findings: No intra-axial mass, midline shift, hydrocephalus, or acute hemorrhage. Valentin-white matter differentiation is preserved. There is no sinus or mastoid fluid. The orbits are unremarkable. No skull fracture. IMPRESSION: 1. No acute intracranial findings. This document has been electronically signed by: Thor Alanis MD on 08/16/2025 18:42:18
--- NOTE | ~2025-08-16 | CT_ITS ---
CLINICAL HISTORY: chest pain than syncopized. PE? CT angiography chest with contrast. 3D Postprocessing. Comparison: CR/SR - XR CHEST 2V - 10/17/24 13:59 EST Findings: The heart is normal size. RV/LV ratio is normal. The thoracic aorta is normal caliber. No pulmonary artery filling defects. The visualized thyroid and mediastinum are unremarkable. No consolidation or effusion. The visualized upper abdomen is unremarkable. The bones are intact. IMPRESSION: 1. No pulmonary embolus. This document has been electronically signed by: Thor Alanis MD on 08/16/2025 18:47:52
[2025-08-16 15:58] VITALS: BP 117/75; BP 126/80; PULSE 111; PULSE 130; RESP 18; TEMP 36.8; O2SAT 99; BMI 22.7
--- NOTE | 2025-08-16 16:05 | ECG_ITS ---
Test Reason : seizure Blood Pressure : */* mmHG Vent. Rate : 97 BPM Atrial Rate : 97 BPM P-R Int : 182 ms QRS Dur : 78 ms QT Int : 334 ms P-R-T Axes : 73 61 30 degrees QTcB Int : 424 ms Normal sinus rhythm with sinus arrhythmia Possible Left atrial enlargement Borderline ECG No previous ECGs available Referred By: Zain Rosales Electronically Signed By: Heriberto Wolf
--- NOTE | 2025-08-16 16:16 | ED_ITS ---
HPI - General Adult General Chief complaint: Seizure Stated complaint: Seizure Time Seen by Provider: 08/16/25 16:01 Source: patient Mode of arrival: ambulatory Limitations: no limitations History of Present Illness ED Provider: Zain Rosales HPI narrative: 19 yold female transitioning to male presents to the ED for chest pain and seizure like episdoe. Family member states patient was complaining of chest pain and when family member placed portable oxygen on her finger heart rate was in the 140's and 02 saturation of 79%. Family states patient had another seizure episdoe. EMS states patient had third seizure episode in ambulance. EMS states patient was postiticial EMS states patient refused IV due to her being scan. Patient states they were seen yesterday at [facility] for chest pain. Patient's main complaint is chest pain. Patient has no pmh of seizures. Related Data Previous Rx's ?Medication ?Instructions ?Recorded albuterol sulfate 2.5 mg/3 mL 2.5 mg (3 mL) inhalation Q4-6H PRN 10/17/24 (0.083 %) solution for nebulization shortness of breat h or wheezing #180 mL albuterol sulfate 90 mcg/actuation 2 puff inhalation Q 4-6H PRN 10/17/24 aerosol inhaler shortness of breath or wheez ing #8.5 grams amoxicillin 500 mg capsule 1,000 mg (2 x 500 mg) PO TI D 5 10/17/24 days #30 caps azithromycin 250 mg tablet See Rx Instructions PO .COM PLEX #6 10/17/24 tabs Allergies Allergy/AdvReac Type Severity Reaction Status Date / Time No Known Allergies Allergy Verified 08/16/25 16:01 Review of Systems 2 Review of Systems: seizure and chest pain Yes all other systems are reviewed and are negative [facility] Social History Social History Smoked in Last 30 Days: No Use of substances other than those prescribed or required for medical reasons: No Advance Directives: No Advance Directives Information Provided: No Do you have a plan to hurt others: No Plan Patient : No Physical Exam ED Vital Signs: Vital Signs - 24 hr 08/16/25 15:58 08/16/25 18:45 08/16/25 20:57 Temperature 98.3 F 98.7 F 98.4 F Pulse Rate 111 H 93 111 H Respiratory Rate 18 18 16 Blood Pressure 117/75 116/74 126/79 Pulse Oximetry 99 100 99 Oxygen Delivery Method Room Air Room Air Room Air 08/16/25 21:07 Temperature 98.4 F Pulse Rate 111 H Respiratory Rate 16 Blood Pressure 126/79 Pulse Oximetry 99 Oxygen Delivery Method Room Air BMI result Body Mass Index 22.7 Const General: cooperative, healthy appearing, comfortable, no acute distress, well developed, alert and awake Orientation/consciousness: patient oriented x3 HENMT Head: Yes normal to inspection, Yes No palpable skull fracture present, Yes normocephalic and Yes atraumatic Eyes General: appearance normal, both eyes and all related structures Neck Neck: Yes normal visual inspection, Yes full ROM, Yes no lymphadenopathy, Yes no meningeal signs, Yes trachea midline, Yes supple, No anterior neck swelling and No tender Chest Chest palpation & inspection: normal inspection of the chest and normal palpation of entire chest wall Cardio Jugular venous distension: no JVD Heart sounds: S1 normal heart sound present and S2 normal heart sound present GI Inspection: Yes normal to inspection Palpation (GI): Soft to palpation, not firm, nontender, no guarding and not rigid General: Yes no CVA tenderness Back/Spine/Pelvis Back: no CVA tenderness and No back tenderness Skin General skin exam: no rashes or lesions noted, elasticity normal and turgor normal Neuro General: patient oriented x3, gait normal, tone normal, moves all extremities, Normal light touch and pain sensation, no meningeal signs, no focal motor deficits, CN's II-XI intact bilaterally and normal sensation to monofilament Extrem General: Yes normal to inspection, Yes full ROM and Yes capillary refill normal Psych Appearance: grossly normal, well kempt and not disheveled Medications Administered Discontinued Medications Generic Name Dose Route Start Last Admin Trade Name Davidq PRN Reason Stop Dose Admin Diazepam 5 mg 08/16/25 18:04 08/16/25 18:23 Diazepam 10 Mg/2 Ml Cartridge IVPUSH 08/16/25 18:05 5 mg STAT STA Administration Sodium Chloride 1,000 mls @ 999 mls/hr 08/16/25 16:03 08/16/25 19:10 Ns IV 08/16/25 17:03 Infused .Q1H1M STA Infusion Sodium Chloride 1,000 mls @ 999 mls/hr 08/16/25 18:05 08/16/25 19:10 Ns IV 09/21/25 19:05 Infused .Q1H1M STA Infusion Iohexol 100 ml 08/16/25 17:32 08/16/25 17:32 Iohexol 350 Mg/Ml 100 Ml Infus..Btl IV 08/16/25 17:33 65 ml ONCE ONE Administration Medical Decision Making Medical Decision Making [facility] Narrative: 19-year-old female presents to ED for chest pain and seizure episodes. Earlier today patient has had chest pain and then as per family members on portable pulse ox patient's O2 sat was 79% and heart rate in the 140s and then patient passed out started having seizure episodes. Patient had total of 3 seizure episodes. EMS states patient was postictal. Presently patient is alert oriented x3. Patient initially refused labs and IV but now is compliant. Due to patient states stating chest pain and then syncopized having seizure episode was hypoxic was due chest CTA to rule out PE. We will sent for head CT scan. Check electrolytes and UA. Drug screen ordered. Patient denies any history of alcohol abuse. 6:33pm: Patient was given Valium. Patient was anxious heart rate in the 130s. Patient is alert oriented x3 6:48pm: Head CT scan is normal. Pending Chest CTA 8:31pm: Patient is CAT scans came back normal. Patient is alert oriented x3. Patient does not have a history of seizure this is the 1st time mass per EMS and family. Case discussed with Dr. Pollack who states patient should follow-up outpatient Neurology for seizure no need for admission. Patient has never had a seizure during ED visit and was never hypoxic. EKG normal sinus. Glucose normal. Negative for electrolyte deficiency. Patient and family explained worrisome signs and informed to return to the ED immediately. Not suspecting Myocarditis, pericarditis, stroke, meningitis, encephalitis, or any other life- threatening etiology. patient given copy of labs and imaging for follow-up with primary care provider at [facility]. Differential Diagnosis Differential Diagnoses: The differential diagnosis associated with the presentation includes (PE, seizure, syncope) Admission/Observation Consideration of admission/observation: Escalation of care including admission/observation considered Lab Data [facility] Lab Attestation statement: I reviewed the patient's lab results. 08/16/25 16:24 08/16/25 16:24 Labs: Lab Results 08/16/25 08/16/25 08/16/25 Range/Units 16:24 16:32 19:26 WBC 9.4 (4.8-10.8) X10*3/uL RBC 4.32 (4.20-5.50) X10*6/uL Hgb 13.5 (12.0-16.0) g/dl Hct 38.7 (37.0-47.0) % MCV 89.6 (80.0-98.0) fL MCH 31.3 (27.0-33.0) pg MCHC 34.9 (31.0-35.0) g/dl RDW 12.1 (11.0-16.0) % Plt Count 278 D (160-400) X10*3/uL MPV 10.5 (9.4-12.3) fL Immature Gran % (Auto) 0.2 (0.0-0.4) % Neut % (Auto) 62.5 (45-73) % Lymph % (Auto) 20.8 (20-40) % Bureau % (Auto) 8.5 (2-11) % Eos % (Auto) 7.3 H (0-4) % Baso % (Auto) 0.7 (0-2) % Lymph # (Auto) 2.0 (1.2-4.9) X10*3/uL Bureau # (Auto) 0.8 (0.1-1.2) X10*3/uL Eos # (Auto) 0.7 H (0.0-0.4) X10*3/uL Baso # (Auto) 0.1 (0.0-0.2) X10*3/uL Abs Immat Gran (auto) 0.02 (0.00-0.03) X10*3/uL Absolute Neuts (auto) 5.9 (2.0-8.3) x10*3/uL Absolute Nucleated RBC 0.000 (0.0-0.012) X10*3/uL Nucleated RBC % (auto) 0.0 (0.0-0.2) /100WBC PT 12.7 H (10.9-12.4) SEC INR 1.1 (0.9-1.1) APTT 32.3 (26.7-34.1) SEC Sodium 140 (135-145) mmol/L Potassium 3.6 (3.3-5.1) mmol/L Chloride 109 H (96-108) mmol/L Carbon Dioxide 25 (22-29) mmol/L Anion Gap 10 L (12-20) BUN 6 L (9-16) mg/dL Creatinine 0.64 (0.5-1.4) mg/dL Estim Creat Clear Calc 140.3 Estimated GFR > 60 Random Glucose 105 (60-115) mg/dL Calcium 9.4 (8.4-10.2) mg/dL Magnesium 2.1 (1.6-2.6) mg/dL Total Bilirubin 0.4 (0.0-1.0) mg/dL AST 20 (5-31) U/L ALT 17 (0-31) U/L Alkaline Phosphatase 47 (39-117) U/L Troponin I High Sens < 2.7 < 2.7 (<3.5-17.0) ng/L Total Protein 7.2 (6.5-8.0) g/dL Albumin 4.6 (3.5-5.0) g/dL Beta HCG, Quant < 2 mIU/mL Urine Color Yellow Urine Appearance Clear Urine pH 8.0 (5.0-9.0) Ur Specific [place] <= 1.005 (1.005-1.025) Urine Protein Negative (Neg-Trace) mg/dL Urine Glucose (UA) Negative (Negative) mg/dL Urine Ketones Negative (Negative) mg/dL Urine Blood Negative (Negative) Urine Nitrite Negative (Negative) Ur Leukocyte Esterase Negative (Negative) Urine Opiates Screen Not Detected (Not Detect) Ur Buprenorphine Scrn Not Detected (Not Detect) ng/mL Ur Oxycodone Screen Not Detected (Not Detect) ng/mL Urine Methadone Screen Not Detected (Not Detect) ng/mL Urine Fentanyl Screen Not Detected (Not Detect) Ur Barbiturates Screen Not Detected (Not Detect) Ur Phencyclidine Scrn Not Detected (Not Detect) Ur Amphetamines Screen Not Detected (Not Detect) U Benzodiazepines Scrn Not Detected (Not Detect) Urine Cocaine Screen Not Detected (Not Detect) U Marijuana (THC) Screen Not Detected (Not Detect) Ethyl Alcohol < 10 mg/dL Independent Interpretation I performed an independent interpretation of an: EKG (Negative STEMI) and CT Scan Radiology Impression Discussion of test interpretation with radiology: I have reviewed the radiologist's reading. Independent Historian Clinical information obtained from an independent historian. History obtained from or confirmed by: Other (Patient) Discharge Plan Discharge Clinical Impression: Seizure-like activity, Chest pain Patient Disposition: Home, Self-Care Instructions: Chest Pain (ED), New-Onset Seizure in Adults (ED) Additional Instructions: Your labs and imaging came back reassuring. You will need follow-up with outpatient Neurology for EEG. Return to the ED immediately for any chest pain, shortness of breath, coughing up blood, slurred speech, facial droop, paralysis of extremities, or any other concerning symptoms. Prescriptions: No Action amoxicillin 500 mg capsule 1,000 mg PO TID 5 Days Qty: 30 0RF azithromycin 250 mg tablet See Rx Instructions .ROUTE .COMPLEX Qty: 6 0RF Rx Instructions: For 250 mg dose pack: take 500 mg today (day 1), then 250 mg for 4 days (days 2-5) albuterol sulfate 2.5 mg /3 mL (0.083 %) solution for nebulization 2.5 mg inhalation Q4-6H PRN (Reason: shortness of breath or wheezing) Qty: 180 0RF albuterol sulfate 90 mcg/actuation HFA aerosol inhaler 2 puff inhalation Q4-6H PRN (Reason: shortness of breath or wheezing) Qty: 8.5 0RF Referrals: Renae Velasquez MD [Primary Care Provider, Pediatrics] - 2 days Clinical Impression: Seizure-like activity; Chest pain Marcela Fatima MD [Physician, Neurology] - 2 days Referral Note: New onset seizure-like activity Clinical Impression: Seizure-like activity Stand Alone Forms: Work/School Release Interventions: ED Discharge Assessment Last Done: 08/16/25 21:07 Discharge Date/Time: 08/16/25 21:09 Print Language: Azerbaijani
[2025-08-16 16:28] LABS: MANUAL DIFF FLAG NO
[2025-08-16 16:31] LABS: Hematocrit 38.7 % (37.0-47.0); Hemoglobin 13.5 g/dl (12.0-16.0); Imm Gran Abs Auto 0.02 X10*3/uL (0.00-0.03); Imm Gran Pct Auto 0.2 % (0.0-0.4); Lymphocytes Absolute Auto 2.0 X10*3/uL (1.2-4.9); Mean Corpuscular HGB Conc 34.9 g/dl (31.0-35.0); Mean Corpuscular Hemoglobin 31.3 pg (27.0-33.0); Mean Corpuscular Volume 89.6 fL (80.0-98.0); NRBC Abs Auto 0.000 X10*3/uL (0.0-0.012); NRBC Pct Auto 0.0 /100WBC (0.0-0.2); Platelet Count 278 X10*3/uL (160-400); Red Blood Count 4.32 X10*6/uL (4.20-5.50); White Blood Count 9.4 X10*3/uL (4.8-10.8)
[2025-08-16 16:37] LABS: INTERNATIONAL NORM RATIO 1.1 (0.9-1.1); Prothrombin Time 12.7 SEC (10.9-12.4)
[2025-08-16 16:40] LABS: Partial Thromboplastin Time 32.3 SEC (26.7-34.1)
[2025-08-16 16:41] LABS: Appearance Urine Clear; Glucose Urine UA Negative (Negative); PH 8.0 (5.0-9.0); Specific Gravity - Urine <= 1.005 (1.005-1.025)
--- OUTSIDE RECORDS SUMMARY | 2025-08-16 16:49 | XMS_ITS | Encounter Summary ---
Author Organization [facility] Address [address] [place] [address] Phone Care Team Providers Care Director Of Anesthesia Services Name Role Phone Juanita Savage DOPER Primary Care Provider [phone] Encounter Details Date Type Department Care Team (Late st Contact Info) Description 11/07/2011 Documentation [facility] [place] Family Medicine [address] [place], [place] [id number] Family Medicine, Physician [address] [place] [address] Social History Tobacco Use Types Packs/Day Years Used Date Smoking Tobacco: Never Assessed Comments Unknown Sex and Gender Information Value Date Recorded Sex Assigned at Not on file Legal Sex Female 4:55 PM EDT Gender Identity Other 09/25/2022 3:18 AM EDT Sexual Orientation Not on file documented as of this encounter Plan of Treatment Not on file documented as of this encounter Visit Diagnoses Not on filedocumented in this encounter Care Teams Director Of Anesthesia Services Relationship Specialty Start Date End Date Juanita Savage NP [address] [place] [address] PCP - General Pediatrics 05/15/23 documented as of this encounter
--- OUTSIDE RECORDS SUMMARY | 2025-08-16 16:49 | XMS_ITS | Encounter Summary ---
Author Organization [facility] Address [address] [place] [address] Phone Care Team Providers Care Header Boss Name Role Phone Juanita Savage NP Primary Care Provider [phone] Reason for Visit * Reason Comments Med Refill Encounter Details Date Type Department Care Team (Late st Contact Info) Description 07/31/2019 Refill [facility] [address] [place] [address] Renae Velasquez MD [address] [place] [id number] Depression with anxiety Social History Tobacco Use Types Packs/Day Years Used Date Smoking Tobacco: Never Comments:Never smoker Comments No Sex and Gender Information Value Date Recorded Sex Assigned at Not on file Legal Sex Female 4:55 PM EDT Gender Identity Other 09/25/2022 3:18 AM EDT Sexual Orientation Not on file documented as of this encounter Miscellaneous Notes * Telephone Encounter - Katya Puente LPN - 07/31/2019 8:31 AM EDT Pt sees a med provider documented in this encounter Plan of Treatment Not on file documented as of this encounter Visit Diagnoses Diagnosis Depression with anxiety Dysthymic disorder documented in this encounter Care Teams Header Boss Relationship Specialty Start Date End Date Juanita Savage NP [facility] [place] [address] PCP - General Pediatrics 05/15/23 documented as of this encounter
--- OUTSIDE RECORDS SUMMARY | 2025-08-16 16:49 | XMS_ITS | Encounter Summary ---
Author Organization [facility] Address [address] [place] [address] Phone Care Team Providers Care Osteopathic Medicine Teacher Name Role Phone Juanita Savage INSTRUMENT DESIGNER Primary Care Provider [phone] Encounter Details Date Type Department Care Team (Late st Contact Info) Description 04/18/2011 Documentation [facility] [place] Medicine [address] [place], [place] [id number] Family Medicine, Physician [address] [place] [address] Social History Tobacco Use Types Packs/Day Years [...] on filedocumented in this encounter Care Teams Osteopathic Medicine Teacher Relationship Specialty Start Date End Date Juanita Savage NP [address] [place] [address] PCP - General Pediatrics 05/15/23 documented as of this encounter
--- OUTSIDE RECORDS SUMMARY | 2025-08-16 16:49 | XMS_ITS | Clinical Summary ---
Author Organization [facility] Address [address] [place] [address] Phone Care Team Providers Care Agent Licensing Clerk Name Role Phone Juanita Savage SASH MAKER Primary Care Provider [phone] Allergies Active Allergy Reactions Criticality Noted Date Comments Environmental 10/25/2017 Dog dander, cat dander, and dust mites,mosquitos Seafood -sensitivity Medications albuterol HFA (ProAir HFA) 108 (90 Base) MCG/ACT inhalerIndication s:Moderate persistent asthma without complication Inhale 2 puffs every 4 (four) hours as needed for wheezing. 2 Units 3 12/12/2022 Active testosterone cypionate 200 MG/ML injection INJECT 0.25 ML (50 MG TOTAL) UNDER THE SKIN EVERY 7 DAYS. 02/19/2023 Active montelukast 10 MG tabletIndications :Allergic rhinitis, unspecified seasonality, unspecified trigger Take 1 tablet (10 mg total) by mouth nightly. 90 tablet 3 05/23/2023 Active Active Problems Problem Noted Date Diagnosed Date Fatigue 07/12/2023 Eating disorder 07/12/2023 Assessment & Plan (07/12/2023 4:23 PM EDT): Eating disorder seems to be worsened by gender dysmorphia. I think Florencio's eating disorder would improve after top surgery which they are working towards. This office tried to set Florencio up with an eating disorder clinic who recommended inpatient care. Florencio declined and continues to struggle. Will do blood work today and order an EKG. Chronic back pain 07/12/2023 Gender dysphoria of adolescence 12/12/2022 Assessment & Plan (05/23/2023 1:53 PM EDT): Improved now on testosterone. Continue followup with [facility]. Assessment & Plan (04/12/2023 7:55 AM EDT): Seeing [facility]. On Testosterone. Doing much better emotionally. Advised continued followup with [facility] therapist. Counseling done. Borderline personality disorder 10/27/2022 Overview (10/27/2022): Dx'ed Sep 2022 by [facility]. Recs included: 1. PHP 2. DBT 3. Weekly outpatient therapy Assessment & Plan (06/13/2023 1:13 PM EDT): Pt presented for follow-up with [facility]. They wrote down notes on their phone of things to talk about in session. Pt noted that when they don't see someone for a while, a friend or significant other, the emotional connection can dissipate. Pt was able to walk away from an argument with their father the other day instead of engaging in back and forth- something that has been difficult for pt to do in the past. Pt continues to take testosterone and no reports of any negative side effects. Pt downloaded an ivonne on the phone called [facility]- a place to track eating, sleeping, exercise, etc. They have been finding it helpful as they have been realizing they can sometimes forget to eat. Pt is doing well navigating through various emotional ups and downs- has purpose with their dog and partner. Pt will reach out for follow-up appt. Pt denies SI, HI, AVH Assessment & Plan (06/11/2023 11:02 AM EDT): Pt reported they have been driving more and feeling more comfortable behind the wheel. Once feeling ready, will call to schedule on road test. Pt has been applying for more jobs- recently had an interview at [employer], and is applying to a few more beauty places. Pt also has a consult with a surgeon to discuss top-surgery. Pt described the process and is hoping insurance will cover most of it. Pt continues to struggle with symptoms of depression, bipin and hopelessness. Impulsivity has decreased- pt is able to journal and distract self from any urges to self-harm. Denies SI, Him AVH Pt is focused on diagnoses given to them- [facility] is trying to support pt in not identifying with the actual diagnosis, rather the symptoms pt is experiencing. Pt will return in 1 week to meet with [facility] and discuss short-term tx planning- tasks for pt to do daily/weekly to gain self-confidence and autonomy. Assessment & Plan (05/08/2023 12:29 PM EDT): Pt presented for follow-up and noted that their bi-polar symptoms have been more present and noted that the depressive symtpoms are worse than the bipin. Pt is not on any mood stabilizers, however noted that they might be interested in discussing. [facility] encouraged pt to make an appt with their PCP. Pt has been taking testosterone for a few months now, their voice is noticeably deeper and they are seeing facial hair. That was the goal. Pt just got their license and has been driving a little- hoping to get license after more comfortable behind the wheel. Pt endorsed ongoing passive SI, but denies any plan or intent. Will follow up with pt in 3-4 weeks Assessment & Plan (03/22/2023 2:49 PM EDT): Pt reported that they have engaged in self-harm after refraining for a good amount of time. Pt noted that they have been more depressed, associating that with not having money for marijuana due to not having a job. Pt has been searching for jobs and has applied to a few- the ones that responded required a drivers license which they don't have. Pt reported feeling frustrated applying to jobs they know they are capable of doing, but without reliable transportation, they won't be considered. [facility] supported pt in being open-minded about other job opportunities- discussed arts and crafts stores and walking in the store in person to inquire about employment. Pt noted they will be starting at [employer] in the fall- looking forward to taking classes and having structure and routine. Pt has been taking Testosterone for about a month now- has noticed some changes in their voice, but no negative side effects. Feels supported by [facility] doctors. Despite frustrations, pt seems optimistic and hopeful that they will find a job in order to earn an income and hopefully do something they are passionate about. Pt continues to journal and use opposite action and other DBT skills to manage BPD symptoms. Pt inquired about autism and being tested- encouraged them to talk to PCP. Will follow up with pt in 3 weeks. Pt able to contract for safety and denies SI, HI, AVH Assessment & Plan (02/23/2023 11:26 AM EDT): Pt noted that she started Testosterone on 02/19- prescribed by [facility] doctor and pt was able to give herself the first shot. Every Sunday she gives herself a shot- so far no negative side effects. Pt hopes that her voice will deepen sooner than later. Pt brought in her journal, shared with [facility]. Pt tends to journal at times when she is feeling strong emotions and intrusive thoughts. Documents BPD symptoms, looking for patterns, such as fear of abandonment. Pt notes that when there is too much down time, thoughts flood her brain- most negative. Pt denies SI and urges to self- harm - remains future focused. Planning to begin at [employer]- already enrolled and looking for free or discounted bus tickets for transportation. She is also looking for a job- would like to work with people with disabilities - [facility] suggested looking at [employer] for job postings. Pt continues to look for an outpatient therapist, but has not had any luck. [facility] will follow up with pt in 1 month Assessment & Plan (01/30/2023 4:30 PM EST): Pt reported getting into an argument with her father a week ago and hasn't spoke to him much since- was over something stupid . Pt took the bus to the appointment- something they have never done and noted that it wasn't as bad as they thought. [facility] praised pt for following through and utilizing resources/autonomy. 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 Pt has continues to journal, stick with the schedule they made for each day to feel productive. Working on BPD symptoms and reduction of them- really wants to recover and not identify with diagnosis. Will be starting testosterone in the near future- confirmed at last [facility] appointment. No SI or urges to self-harm- pt has been able to use opposite action and other skills to reframe thinking and reduce impulsive behaviors. Pt has been managing emotions and symptoms without medication (only has Hydroxizine PRN) and without consistent therapy. [facility] encouraged pt to continue to look for a intermodal truck driver therapist, which they plan to do. Will follow up with pt in 1 month Assessment & Plan (01/10/2023 12:24 PM EST): Pt has been going on walks with their dogGage, which has been helpfu. Pt is self-aware that structure and routine are beneficial- has made some what of a daily schedule including eating breakfast, going for a walk, and reading. Down time turns up the negative thoughts in the mind, and pt is trying to avoid that. Journaling has been identified as a daily engagement- mostly at night. Wanting to remember important things throughout the day, reportedly due to dissociation and not remembering things. Pt has made progress in regards to response vs reaction and impulse. Pt noted feeling jealous of her sister, as she is in H[place] and has not had any interruptions like pt had ( inpatient psych units and Covid-19). Pt verbalized the skills she learned and used to deal with this emotion. Pt is trying not to identify with diagnoses given to her, but is able to gain an understanding of how she feels and correlation to diagnosis. Protective factors still in place: partner, dog and sister. No report of SI, HI, AVH. Pt has matured immensley since first psychiatric admission and [facility] highlighted improvements- self and environmental. [facility] will follow up with pt in 3 weeks Pt will continue to look for ongoing outpatient therapist Assessment & Plan (12/29/2022 9:20 AM EST): Pt has been dx with BPD, JAME, Complex PTSD. Pt also has unofficial dx of ARFID- ongoing concerns about eating and restriction. Pt notes that due to gender dysphoria, they wear a binder to compress their breasts- fear of weight gain in hips and breasts. Pt lives at home with mom, dad and sister. Does not get a long with them. Pt has a partner who they have been with for almost 2 1/2 years- share a lab dog. This relationship is going well- despite other unstable relationships throughout their life. Pt has been seeing doctors at [facility] and feels comfortable there. [facility] inquired about pt accessing a therapist through there- a bit reluctant as they do not feel gender dysphoria is problematic and worried therapy offered there would only focus on that. Pt has tried DBT skills- not sure if it is helpful, but is willing to try again. Pt notes that their dog is keeping them alive- noting that they couldn't imagine leaving the dog when they think about ending their own life. Protective factor Pt currently only taking Hydroxizine PRN- unsure if they want to be on any other psychiatric medications Discussed harm reduction approach with self-harm- offered suggestions like frozen oranges for dissociative episodes. Pt will follow up with [facility] in 2 weeks Might bring the DBT workbook to review skills Pt has information about [facility] - urgent care for BH. DMDD (disruptive mood dysregulation disorder) Overview (10/27/2022): Dx'ed Sep 2022 by [facility] Assessment & Plan (07/12/2023 4:22 PM EDT): Florencio needs to be set up with an adult psychiatrist who can manage symptoms and medications. Florencio also needs to begin working with a intermodal truck driver therapist. States they already have the phone numbers for [facility]. Will work with Melly Long to find an appropriate fit. 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 No other bleeding or bruising issues. Patient has been trying allergy medication as well as topical Vaseline to help decrease nasal irritation without effect on nose bleeds. Will refer to ENT for further management of this. Needlestick injury due to hypodermic needle 06/26 Assessment & Plan (07/06/2020 6:01 PM EDT): With metal wound [place] in the park will give tetanus booster as last tetanus was more than 5 years ago. With needle injury will screen for hepatitis B, hepatitis C and HIV currently and then repeat in 3 months (September 2020). Injury area with flat blister is not particularly consistent with a needle injury. It does not appear to be a burn with no erythema around this area. It does not appear to be a blister from physical irritation or use just by appearance (no buckling of skin or erythema areas). No concern for infection in this area currently with no specific swelling or erythema. DIscussed with mother to send in some pictures of the area daily for the next couple of days so that we can follow with this looks like. Acne 07/07/2019 Assessment & Plan (07/07/2019 9:03 AM EDT): Has used a medicine in a green bottle, unknown. Would like to treat her acne now. Major depressive disorder with current active ep isode 07/07/2019 Assessment & Plan (07/26/2023 2:14 PM EDT): Pt presented for follow-up, noting that they had a rough week. Noted that PTSD and Bipolar symptoms flared- very helpless, SI thoughts, no plan or intent. Pt took a video recording of them talking about how they were feeling in the moment, instead of journaling. [facility] listened to it- praised pt for using effective coping skills, cheung mind and opposite action. Pt noted some gender dysphoria- back and forth between wanting to appear more masculine vs feminine. Pt has stopped Testosterone for a bit- has deeper voice and may be getting gel packs instead. Pt is not wanting to take medication for Bipolar symptoms, worried about dependency and addiction. Noted that when they used to take medication, they would take more than prescribed to try to get the ultimate effect immediately. Pt is older and wiser now, may be beneficial for pt to meet with a psychiatrist to discuss options. Pt will also need a intermodal truck driver therapist, as this service is short-term. Pt noted concerns about finding the right person to connect with, as in the past when they didn't like their provider, they would just not go. Pt was able to contract for safety- noted that they will look back into the journal or videos and realize that what they were feeling in the moment is in fact, in the moment. Sometimes dramatic or over thinking which pt is aware of. Will follow-up with pt in 1 week- discuss action plans for being set up with a therapist/psychiatrist. Assessment & Plan (07/17/2023 11:22 AM EDT): Pt presents for follow-up with [facility]. Pt called office on Sunday endorsing bipin, psychosis and eating disorder related symptoms. Pt endorsed SI, with no plan or intent. More passive, and office staff were able to provide [facility] and crisis numbers, which pt already had. Pt noted that they were experiencing psychosis- seeing and hearing things not there. Inquired about marijuana use,sleep and eating, as marijuana can cause these symptoms, combined with lack of sleep and malnutrition. Pt noted they stopped the marijuana for a few days to see if the symptom would decrease, but they did not. Pt presented to session denying any AVH, and noted they have been utilizing coping skills to manage intrusive and unwanted thoughts- being more mindful of impulse control and waves of bipin/depression. Pt has upcoming appt with PCP to discuss further and talk about medication management. Protective factors: pt loves her dog Max and cares for him, will be going to [facility] for a class or two, future focused, help-seeking Will follow-up with pt in 2-3 weeks, discuss PCP appointment and action plans moving forward. Pt currently denies SI, HI, AVH Dyslexia 10/04/2018 Overview (10/04/2018): Noted by [facility] (2012) Generalized anxiety disorder 08/10/2017 Overview (07/07/2023): 07/07/2023 - Request for appointment due to sleep issues and not eating. 07/12/2023 appointment booked. Assessment & Plan (04/12/2023 7:55 AM EDT): Stable. Advised followup with [facility] therapist. Counseling done. Assessment & Plan (10/25/2017 4:14 PM EST): Doing better, with counselling, learning skills. Continue, keep involved in activities, practice with your recording Assessment & Plan (08/10/2017 5:48 PM EDT): Practice with the recording daily, or make your own. See Reva Gutierrez at [facility]. Gastroesophageal reflux disease 08/10/2017 Assessment & Plan (10/26/2017 1:59 PM EST): Doing better Continue prilosec Assessment & Plan (08/10/2017 5:47 PM EDT): Take prilosec, see me in amonth avoid acidy foods Panic attacks 08/10/2017 Assessment & Plan (10/26/2017 1:59 PM EST): Doing better, practicing relaxation exercises. Continue to do so. Assessment & Plan (08/10/2017 6:50 PM EDT): Practice with the recording, should help prevent panic attacks. Gastroesophageal reflux disease Take prilosec, see me in amonth avoid acidy foods Generalized anxiety disorder Practice with the recording daily, or make your own. See Reva Gutierrez at [facility]. Taught relaxation mental imagery in a very flexible way, Mendy fiddling with her stress ball with a happy face, me saying everyone has their own way of breathing, through their noses, mouths,etc (since she obviously was opposed to learning a breathing exercise ) and said that everyone's body has their own ways of reacting to stress (another yes set ) and dealing with it, I wonder what will be right for you, then suggested several comfortable places - her own room, on the dance floor, with friends, on the beach, etc. She had her eyes closed (on her own) through most of this, breathing slowed, she seemed relaxed. She though the session (recorded on mom's phone, mom present, and quite relaxed too, through the session) lasted 40 minutes; it lasted just a bit over 7 minutes. I observed that time distortion is a common side effect of being relaxed/daydreaming/in a trance. 1. Generalized anxiety disorder sertraline 50 MG tablet 2. Gastroesophageal reflux disease, esophagitis presence not specified omeprazole 20 MG delayed-release capsule 3. Panic attacks Allergic rhinitis 02/14/2013 Assessment & Plan (10/25/2017 4:15 PM EST): Take zyrtec regularly, call with problems. Moderate persistent asthma without complication 11/01/2011 Assessment & Plan (07/27/2021 9:56 PM EDT): Currently taking singulair which helps control her asthma. With regular use of albuterol for shortness of breath, needs further help with asthma control and so will add flovent to this. Continue to use albuterol as needed. Follow up in 2-3 weeks to see how she is doing with asthma control. Given elevator pass until follow up to see how she is with asthma and breathing. Referral to Allergy for further management of asthma and allergies. Mother interested in getting this referral. Assessment & Plan (10/26/2017 1:59 PM EST): stable Asthma 11/01/2011 Immunizations Immunization Administration Dates Next Due DTaP 5 11/12/2007, 5,06/01/2004,03/28,01/06/2004 H1N1 12/14/2009 HPV Vaccine 9 Valent 06/15/2017,04/06/2016 Hep A, ped/adol 04/06/2016,03/31/2015 Hep B, ped/adol 08/26/2004,06/01/2004,2003 Hib (HbOC) 02/03/2005,06/01/2004 Hib (PRP-T) 03/28/2004,01/06/2004 IPV 11/12/2007, 4,03/28/2004,01/06 Influenza Split 02/14/2013,01/30/2012,10/19/2010 Influenza, injectable, quadr ivalent, preservative free 11/30/2020,10/08/2018 Influenza, injectable, trivalent 010,08/25/2008,09/25/2007,10/17,11/11/2004 MMR 11/11/2004 MMRV 11/12/2007 Meningococcal Conj (Menactra) MCV4P 11/30/2020,0 03/31/2015 Pneumococcal Conjugate 02/03/2005,2003,03/28/2004,01/06 Tdap 07/06/2020,03/31/2015 Varicella 11/11/2004 Family History Medical History Relation Name Comments No Known Problems Father Cristofer No Known Problems Mother Ajay No Known Problems Sister Emelina Relation Name Status Comments Father Cristofer Alive Father: Alive a nd well, High cholesterol Maternal Grandfather Materna l grandfather: Seizure disorder, Hypertension, Diabetes mellitus Maternal Grandmother Materna l grandmother: Hypertension, Diabetes mellitus Mother Ajay Alive Mother: Migrain es, Alive and well Paternal Grandfather Alive Paterna l grandfather: Coronary artery disease Paternal Grandmother Paterna l grandmother: Heart disease Sister Emelina Alive Social History Tobacco Use Types Packs/Day Years Used Date Smoking Tobacco: Never Comments:Never smoker Hunger/Food Answer Date Recorded In the last 12 months, did y ou or your family ever eat less than you felt you should because there wasn't enough money for food? No 11/30/2020 Stable Housing Answer Date Recorded Are you worried that in the next 2 months you may not have stable housing? No 11/30/2020 Transportation Concerns Answer Date Rec orded In the last 12 months, have you or your family ever had to go without healthcare because you didn't have a way to get there? No 11/30/2020 Hazards in Home Answer Date Recorded Think about the place you li ve. Do you have problems with any of the following? Pests (mice or roaches), mold, no/not working smoke detectors, water leaks, no window guards. No 2020 Financing Utilities Answer Date Recorde d In the last 12 months, has t he electric, gas, oil, or water company threatened to shut off your services in your home? No 11/30/2020 Safety at Home Answer Date Recorded Are you or your family worried about feeling saf e in your home? No 11/30/2020 Outside Support Answer Date Recorded Do you feel that you need mo re support from other people or programs to help you care for yourself or your family? Yes 11/30/2020 Understanding Health Concerns Answer Da te Recorded Do you need help understandi ng your or your child's healthcare needs (diagnosis, medications, plan, etc.)? Yes 11/30/2020 Financing Health Concerns Answer Date R ecorded In the last 12 months, was t here a time when your child needed to see a doctor or get medications or supplies but could not because of cost? No 11/30/2020 Missing School or Work Answer Date Gus rded Did you or your child miss s chool or work because of a health problem that could have been avoided? Yes 11/30/2020 Comments No Sex and Gender Information Value Date Recorded Sex Assigned at Not on file Legal Sex Female 4:55 PM EDT Gender Identity Other 09/25/2022 3:18 AM EDT Sexual Orientation Not on file Last Filed Vital Signs Vital Sign Reading Time Taken Comments Blood Pressure 112/74 07/12/2023 3:41 PM EDT Pulse 80 07/12/2023 3:41 PM EDT Temperature 36 C (96.8 F) 07/12/2023 3:41 PM EDT Respiratory Rate - - Oxygen Saturation 99% 02/28/2022 4:07 PM EDT Inhaled Oxygen Concentration - - Weight 61.2 kg (135 lb) 07/12/2023 3:41 PM EDT Height 172.7 cm (5' 8 ) 05/23/2023 1:08 PM EDT Body Mass Index 20.53 05/23/2023 1:08 PM EDT Plan of Treatment Health Maintenance Due Date Last Done Comments Men B Vaccine (1 of 2 - Standard) 2019 Influenza Vaccines (#1) 2025 11/30/19 21, 10/08/2018, 02/14/2013, Additional history exists COVID-19 Vaccine (2 - 2024-2 6 season) 2025 01/19/2023 DTaP,Tdap,and Td Vaccines (8 - Td or Tdap) 07/06/2030 07/06/2020, 03/31/2015, 11/12/2007, Additional history exists Hepatitis B Vaccines Completed 08/26/2004, 06/01/2004, 2003 HIB Vaccines Completed 02/03/2005, 05/2004, 03/28/2004, Additional history exists Pneumococcal Vaccine Completed 02/03/2005, 08/26/2004, 03/28/2004, Additional history exists IPV Vaccines Completed 11/12/2007, 11/2003, 03/28/2004, Additional history exists MMR Vaccines Completed 11/12/2007, 11/11/2004 Varicella Vaccines Completed 11/12/2007, 11/11/2004 Hepatitis A Vaccines Completed 04/06/2016, 03/31/20 15 HPV Vaccines Completed 06/15/2017, 04/06/2016 Meningococcal Vaccine Completed 11/30/2020, 015 Procedures * Due to [place] [employer] law, this organization might not be sharing sensitive test results. Procedure Name Priority Date/Time Associated Diagnosis Comments CHLAMYDIA AND GONORRHEA, AMPLIFIED Routine 12/12/2022 5:18 PM EST Well adult exam from Last 3 Months or Most Recently Relevant to Health Maintenance Results * Due to [place] [employer] law, this organization might not be sharing sensitive test results. * Chlamydia and Gonorrhea, Amplified (12/12/2022 5:18 PM EST) Chlamydia Trachomatis, DNA Probe NEGATIVE (NEG) [facility] Comment: No Chlamydia Trachomatis RNA detected in this patient's sample (REFERENCE RANGE/NORMAL VALUE: NOT DETECTED) Note: This test uses ammunition assembly i laborer- mediated amplification method to detect rRNA from C. Trachomatis URINE GC AMP PROBE NEGATIVE (NEG) [facility] Comment: No Neisseria Gonorrhoeae RNA detected in this patient's sample (REFERENCE RANGE/NORMAL VALUE: NOT DETECTED) NOTE: This test uses ammunition assembly i laborer-mediated amplification method to detect rRNA from N.Gonorrhoeae. A negative result does not preclude infection. In the case of a negative urine result, testing of an endocervical(female) or urethral (male) specimen is recommended if there is high clinical suspicion of infection. Due to very high sensitivity of Nucleic Acid Amplification Test, false positive results may occur. Therefore, specimen handling is extremely important. In patients in whom the disease is unlikely, additional sample for testing should be considered after an initial positive result. The performance characteristics of this test have not been evaluated in children. The Aptima Combo2 assay is not intended for the evaluation of suspected sexual abuse or for other medico-legal indications. The ordering provider should assess if the patient had consensual sex without risk of sexual abuse. Consult the [facility] if needed. Contact phone number . Therapeutic failure or success cannot be determined with the Aptima Combo2 assay since nucleic acid may persist following appropriate antimicrobial therapy. The Centers for Disease Control and Prevention (CDC) recommends confirmatory retesting using culture or a different nucleic acid amplification test when positive results occur, if indicated. Testing performed or reported by [facility], a Service of [facility], [address] [place] [address] Anton Cote MD, Manager [facility]# [id number] Urine (Urine) 12/12/2022 5:1 8 PM EST 12/12/2022 9:45 PM EST us Renae Velasquez MD LAB MICROBIOLOGY - GENERAL ORDER UMESH Final Result [facility] from Last 3 Months or Most Recently Relevant to Health Maintenance Insurance [facility] [place] [facility] BLUE CARD OUT OF STATE [facility] [place] [address] [facility] Liam [facility] [place] [address] [facility] [address] [address] FORMERLY [facility] Care Teams Agent Licensing Clerk Relationship Specialty Start Date End Date Juanita Savage NP [address] [place] [address] PCP - General Pediatrics 05/15/23
--- OUTSIDE RECORDS SUMMARY | 2025-08-16 16:49 | XMS_ITS | Encounter Summary ---
Author Organization [facility] Address [address] [place] [address] Phone Care Team Providers Care Transportation Planner Name Role Phone Juanita Savage [employer] CRM DEVELOPER Primary Care Provider [phone] Encounter Details Date Type Department Care Team (Late st Contact Info) Description 05/01/2017 Documentation [facility] Family Medicine [address] [place], [place] [id number] Family Medicine, Physician [address] [place] [address] Social History Tobacco Use Types Packs/Day Years [...] on filedocumented in this encounter Care Teams Transportation Planner Relationship Specialty Start Date End Date Juanita Savage NP [address] [place] [address] PCP - General Pediatrics 05/15/23 documented as of this encounter
--- OUTSIDE RECORDS SUMMARY | 2025-08-16 16:49 | XMS_ITS | Encounter Summary ---
Author Organization [facility] Address [address] [place] [address] Phone Care Team Providers Care Airworthiness Safety Inspector Name Role Phone Juanita Savage HOB MACHINE OPERATOR Primary Care Provider [phone] Reason for Visit * Reason Comments Med Refill Encounter Details Date Type Department Care Team (Late st Contact Info) Description 07/02/2020 Refill [facility] [address] [facility] [place] [address] Renae Velasquez MD [address] [place] [id number] Uses control Social History Tobacco Use Types Packs/Day Years Used Date Smoking Tobacco: Never Comments:Never smoker Hunger/Food Answer Date Recorded No 11/27/2019 Stable Housing Answer Date Recorded No 11/27/2019 Transportation Concerns Answer Date Rec orded No 11/27/2019 Hazards in Home Answer Date Recorded No 11/27/2019 Financing Utilities Answer Date Recorde d No 11/27/2019 Safety at Home Answer Date Recorded No 11/27/2019 Outside Support Answer Date Recorded No 11/27/2019 Understanding Health Concerns Answer Da te Recorded No 11/27/2019 Financing Health Concerns Answer Date R ecorded No 11/27/2019 Missing School or Work Answer Date Gus rded No 11/27/2019 Comments No Sex and Gender Information Value Date Recorded Sex Assigned at Not on file Legal Sex Female 4:55 PM EDT Gender Identity Other 09/25/2022 3:18 AM EDT Sexual Orientation Not on file documented as of this encounter Miscellaneous Notes * Telephone Encounter - Melodie Mcgarry MA - 07/02/2020 9:58 AM EDT Last [facility] 11/27/[address] Macdonald documented in this encounter Plan of Treatment Not on file documented as of this encounter Visit Diagnoses Diagnosis Uses control documented in this encounter Care Teams Airworthiness Safety Inspector Relationship Specialty Start Date End Date Juanita Savage NP [facility] [facility] [address] PCP - General Pediatrics 05/15/23 documented as of this encounter
--- OUTSIDE RECORDS SUMMARY | 2025-08-16 16:49 | XMS_ITS | Clinical Summary ---
Author Organization [facility] Address [address] [place] [address] Phone Care Team Providers Care General Assistant Name Role Phone Unavailable Primary Care Provider Unavailabl e Allergies Active Allergy Reactions Criticality Noted Date Comments Cat/Feline Products 08/15/2025 Dog Dander 08/15/2025 Other 08/15/2025 Cotton Seed Oil Medications No known medications Encounters Date Type Department Care Team Description 08/15/2025 12:20 PM EDT - 08/15/2025 3:45 PM EDT Emergency [facility] Emergency [address] [place] [address] Marcos Huddleston MD Chest pain, unspecified type (Primary Dx) Discharge Disposition: Home or Self Care from Last 3 Months Medical History Medical History Date Comments Borderline personality disorder in adult (CMS/HC C V24, CMS/HCC V28) PTSD (post-traumatic stress disorder) Asthma Anxiety Social History Tobacco Use Types Packs/Day Years Used Date Smoking Tobacco: Unknown Tobacco Cessation:Counseling Given: Not Answered Comments Unknown Sex and Gender Information Value Date Recorded Sex Assigned at Not on file Legal Sex Female 10:26 PM EST Gender Identity Not on file Sexual Orientation Not on file Obstetrics History Last Filed Vital Signs Vital Sign Reading [...] Mass Index 19.94 08/15/2025 12:32 PM EDT Plan of Treatment Health Maintenance Due Date Last Done Comments Gonorrhea/Chlamydia Screening 2003 Pneumococcal Vaccine: Pediatrics (0 to 5 Years) and At-Risk Patients (6 to 49 Years) (1 of 1 - PPSV23) 2009 02/03/2005, 08/26/2004, 03/28/2004, Additional history exists Meningococcal B Vaccine (1 of 2 - Standard) 2019 Cervical Cancer Screening: Pap Smear 2024 Depression Screening 11/26/2024 COVID-19 Vaccine (2 - season) 2025 01/19/2023 Influenza Vaccine (#1) 2025 , 10/08/2018, 02/14/2013, Additional history exists Annual Well Child Visit (3-21 years old) 08/15/2025 12/12/2022, 12/06/2021, 11/30/2020, Additional history exists HIV Screening 08/15/2025 Hepatitis C Screening 08/15/2025 Social Influencers of Health Screening 08/15/2025 DTaP,Tdap,and Td Vaccines (8 - Td or Tdap) 07/06/2030 07/06/2020, 03/31/2015, 11/12/2007, Additional history exists RSV Immunization Adult Patients (1 - 1-dose 75+ series) 2078 Hepatitis B Vaccines Completed 08/26/2004, 06/01/2004, 2003 HIB Vaccines Completed 02/03/2005, 05/2004, 03/28/2004, Additional history exists IPV Vaccines Completed 11/12/2007, 11/2003, 03/28/2004, Additional history exists MMR Vaccines Completed 11/12/2007, 11/11/2004 Varicella Vaccines Completed 11/12/2007, 11/11/2004 Hepatitis A Vaccines Completed 04/06/2016, 03/31/20 15 HPV Vaccines Completed 06/15/2017, 04/06/2016 Meningococcal ACWY Vaccine Completed 11/30/2020, RSV Immunization Patients Under 20 months Aged Out No longer eligible based on patient's age to complete this topic Procedures Procedure Name Priority Date/Time Associated Diagnosis Comments XR CHEST 1 VIEW STAT 08/15/2025 1:00 PM EDT ECG 12-LEAD STAT 08/15/2025 12:48 PM EDT MAGNESIUM Add-On 08/15/2025 12:42 PM EDT THYROID STIMULATING HORMONE WITH REFLEX TO FREE T4 AND FREE T3 STAT Add-on 08/15/2025 12:42 PM EDT CBC WITH AUTO DIFFERENTIAL STAT 08/15/2025 12:42 PM EDT HCG, QUANTITATIVE STAT 08/15/2025 12: 42 PM EDT D-DIMER STAT 08/15/2025 12:42 PM EDT TROPONIN I HIGH SENSITIVITY STAT 08/15/2025 12:42 PM EDT BASIC METABOLIC PANEL STAT 08/15/2025 12:42 PM EDT CBC AND DIFFERENTIAL STAT 08/15/2025 12:42 PM EDT from Last 3 Months Results * XR Chest 1 View (08/15/2025 1:00 PM EDT) Anatomical Region Laterality Modality Body Radiographic Crystal ging 08/15/2025 1:18 PM EDT Impressions 08/15/2025 1:19 PM EDT No acute chest disease demonstrated -------- FINAL REPORT -------- Dictated By: Jose Mena Dictated Date: 08/15/2025 13:18 ET Assigned Physician: Jose Mena Reviewed and Electronically Signed By: Jose Mena Signed Date: 08/15/2025 13:19 ET Workstation ID: [id number] Transcribed By: Self Edit Transcribed Date: 08/15/2025 [...] Signed Date: 08/15/2025 13:19 ET Workstation ID: [id number] Transcribed By: Self Edit Transcribed Date: 08/15/2025 13:18 ET Marcos Huddleston MD IMG XR PROCEDURES Final Re sult * 12-Lead ECG (08/15/2025 12:48 PM EDT) Ventricular Rate ECG 130 BPM GEMUSE Atrial Rate 130 BPM GEMUSE P-R Interval 156 ms GEMUSE QRS Duration 72 ms GEMUSE Q-T Interval 270 ms GEMUSE QTc 397 ms GEMUSE P Wave Pinson 71 degrees GEMUSE R Pinson 59 degrees GEMUSE T Pinson -18 degrees GEMUSE ECG Interpretation Sinus tachycardia Right atrial enlargement Possible Inferior infarct , age undetermined Cannot rule out Anterior infarct , age undetermined Abnormal ECG No previous ECGs available Confirmed by Matthew RUBI JAMES ([id number]) on 08/15/2025 10:28:03 PM GEMUSE 08/15/2025 12:4 8 PM EDT 08/15/2025 10:28 PM EDT us Marcos Huddleston MD ECG ORDERABLES Final Resu lt Performing Organization Address City/[facility]/ZIP Co de Phone Number ARASHUSE * Troponin I High Sensitivity (08/15/2025 12:42 PM EDT) [facility] High Sensitivity Troponin I <3 <=54 ng/L LAB CHEMISTRY METHOD 08/15/2025 1:24 PM EDT [facility] Blood Venous blood specimen / Unknown Venipuncture / Unknown 08/15/2025 12:42 PM EDT 08/15/2025 12:55 PM EDT Narrative [facility] - 08/15/2025 1:24 PM EDT High levels of biotin in samples may falsely decrease hsTroponin values. Use caution when interpreting hsTroponin results in patients taking biotin who exhibit renal impairment (eGFR <60) or in patients taking more than 20 mg/day of biotin. us Marcos Huddleston MD LAB BLOOD ORDERABLES Final Result Performing Organization Address [facility] Co de Phone Number [facility] [address] [place] [address], [place] [phone] * Thyroid stimulating hormone with reflex to free t4 and free t3 (TSH Reflex) (08/15/2025 12:42 PM EDT) [facility] TSH 0.51 0.40 - 4.00 mcIU/mL LAB CHEMISTRY METHOD 08/16/2025 8:07 AM EDT [facility] Blood Venous blood specimen / Unknown Venipuncture / Unknown 08/15/2025 12:42 PM EDT 08/15/2025 12:55 PM EDT us Marcos Huddleston MD LAB BLOOD ORDERABLES Final Result Performing Organization Address City/[facility]/ZIP Co de Phone Number [facility] [address] [place] [address], [place] [phone] * (ABNORMAL) CBC auto differential (08/15/2025 12:42 PM EDT) [facility] WBC 10.2 4.8 - 10.8 K/mcL LAB HEMETOLOGY METHOD 08/15/2025 1:04 PM EDT [facility] RBC 4.70 3.80 - 4.80 M/mcL LAB HEMETOLOGY METHOD 08/15/2025 1:04 PM EDT [facility] Hemoglobin 14.2 11.5 - 16.0 g/dL LAB [facility]ETOLOGY [facility] Hematocrit 42.8 35.0 - 47.0 % LAB HEMETOLOGY METHOD 08/15/2025 1:[facility] MCV 91.1 79.0 - 98.0 FL LAB HEMETOLOGY METHOD 08/15/2025 1:04 PM EDT [facility] MCH 30.2 27.0 - 32.0 pcg LAB HEMETOLOGY METHOD 08/15/2025 1:[facility] MCHC 33.2 32.0 - 37.0 g/dL LAB HEMETOLOGY METHOD 08/15/2025 1:04 PM [facility] RDW 12.2 11.0 - 15.0 % LAB HEMETOLOGY METHOD 08/15/2025 1:04 PM EDT [facility] Platelets 268 130 - 400 K/mcL LAB HEMETOLOGY METHOD 08/15/2025 1:[facility] MPV 11.0 7.0 - 11.0 FL LAB HEMETOLOGY METHOD 08/15/2025 1:04 [facility] NRBC 0.0 <1.0 % LAB HEMETOLOGY METHOD 08/15/2025 1:04 [facility] NRBC Absolute 0.00 <0.10 K/mcL LAB HEMETOLOGY METHOD 08/15/2025 1:04 PM [facility] Neutrophils Relative 64.3 % LAB HEMETOLOGY METHOD 08/15/2025 1:04 PM [facility] Lymphocytes Relative 20.5 % LAB HEMETOLOGY METHOD 08/15/2025 1:04 PM [facility] Monocytes Relative 7.8 % LAB HEMETOLOGY METHOD 08/15/2025 1:04 PM [facility] Eosinophils Relative 6.4 % LAB HEMETOLOGY METHOD 08/15/2025 1:04 PM [facility] Basophils Relative 0.8 % LAB HEMETOLOGY METHOD 08/15/2025 1:04 PM [facility] Immature Granulocytes Relative 0.2 % LAB HEMETOLOGY METHOD 08/15/2025 1:04 PM [facility] Neutrophils Absolute 6.54 1.50 - 7.00 K/mcL LAB HEMETOLOGY METHOD 08/15/2025 1:04 PM [facility] Lymphocytes Absolute 2.08 1.00 - 5.00 K/mcL LAB HEMETOLOGY METHOD 08/15/2025 1:04 PM [facility] Monocytes Absolute 0.79 0.20 - 1.00 K/mcL LAB HEMETOLOGY METHOD 08/15/2025 1:04 PM [facility] Eosinophils Absolute 0.65(H) 0.00 - 0.50 K/mcL LAB HEMETOLOGY METHOD 08/15/2025 1:04 PM [facility] Basophils Absolute 0.08 0.00 - 0.20 K/mcL LAB HEMETOLOGY METHOD 08/15/2025 1:04 PM [facility] Immature Granulocytes Absolute 0.02 0.00 - 0.03 K/mcL LAB HEMETOLOGY METHOD 08/15/2025 1:04 PM EDT [facility] Blood Venous blood specimen / Unknown Venipuncture / Unknown 08/15/2025 12:42 PM EDT 08/15/2025 12:55 PM EDT us Marcos Huddleston MD LAB BLOOD ORDERABLES Final Result Performing Organization Address [facility]/ZIP Co de Phone Number [facility] [address] [place] [address], [place] [phone] * D-Dimer (Quantitative) (08/15/2025 12:42 PM EDT) D-Dimer, Quant (D-DU) <150 <=230 ng/mL DDU LAB COAGULATION METHOD 08/15/2025 1:42 PM EDT [facility] Blood Venous blood specimen / Unknown Venipuncture / Unknown 08/15/2025 12:42 PM EDT 08/15/2025 12:55 PM EDT Narrative [facility] - 08/15/2025 1:42 PM EDT D-Dimer <230 ng/mL (D-Dimer units) is the threshold for exclusion of DVT/PE. D-Dimer may be elevated in: Critically ill, severely infected, trauma patients, DIC, acute CVA, acute ND, unstable angina, AF, old age, , and smoking. D-Dimer may be decreased with: Initiation of heparin therapy and oral anticoagulants. us Marcos Huddleston MD LAB BLOOD ORDERABLES Final Result Performing Organization Address City/[facility]/ZIP Co de Phone Number [facility] [address] [place] [address], [place] [phone] * HCG, quantitative (08/15/2025 12:42 PM EDT) hCG Quant <1 mIU/mL LAB CHEMISTRY METHOD 08/15/2025 1:28 PM EDT [facility] Blood Venous blood specimen / Unknown Venipuncture / Unknown 08/15/2025 12:42 PM EDT 08/15/2025 12:55 PM EDT Narrative [facility] - 08/15/2025 1:28 PM EDT Quantitative HCG Reference Ranges Time after Conception MIU/ML 0.2-1 Week 5-50 1-2 Weeks 50-500 2-3 Weeks 100-5,000 3-4 Weeks 500-10,000 4-5 Weeks 1,000-50,000 5-6 Weeks 10,000-100,000 6-8 Weeks 15,000-200,000 2-3 Months 10,000-100,000 2nd Trimester 1,000-94,000 3rd Trimester 2,500-90,000 Non- Females 1-3 us Marcos Huddleston MD LAB BLOOD ORDERABLES Final Result Performing Organization Address City/[facility]/ZIP Co de Phone Number [facility] [address] [place] [address], [place] [phone] * Magnesium (08/15/2025 12:42 PM EDT) [facility] Magnesium 2.0 1.9 - 2.6 mg/dL LAB CHEMISTRY METHOD 08/15/2025 1:26 PM EDT [facility] Blood Venous blood specimen / Unknown Venipuncture / Unknown 08/15/2025 12:42 PM EDT 08/15/2025 12:55 PM EDT us Marcos Huddleston MD LAB BLOOD ORDERABLES Final Result Performing Organization Address [facility]/ZIP Co de Phone Number [facility] [address] [place] [address], [place] [phone] * Basic Metabolic Panel (BMP) (08/15/2025 12:42 PM EDT) Sodium 138 133 - 145 mmol/L LAB CHEMISTRY METHOD 08/15/2025 1:26 PM [facility] Potassium 4.0 3.5 - 5.5 mmol/L LAB CHEMISTRY METHOD 08/15/2025 1:26 PM [facility] Chloride 106 96 - 110 mmol/L LAB CHEMISTRY METHOD 08/15/2025 1:26 PM [facility] CO2 26 21 - 32 mmol/L LAB CHEMISTRY METHOD 08/15/2025 1:26 PM [facility] Anion Gap 6 3 - 11 LAB CHEMISTRY METHOD 08/15/2025 1:26 PM [facility] Glucose 100 70 - 100 mg/dL LAB CHEMISTRY METHOD 08/15/2025 1:26 PM [facility] BUN 6 5 - 25 mg/dL LAB CHEMISTRY METHOD 08/15/2025 1:26 PM [facility] Creatinine 0.62 0.50 - 1.10 mg/dL LAB CHEMISTRY METHOD 08/15/2025 1:26 PM [facility] eGFR 130 >=60 mL/min/1. 73m2 LAB CHEMISTRY METHOD 08/15/2025 1:26 PM [facility] Comment:Calculation based on the Chronic Kidney Disease Epidemiology Collaboration (CKD-EPI) equation refit without adjustment for race. BUN/Creatinine Ratio 9.7 LAB CHEMISTRY METHOD 08/15/2025 1:26 PM [facility] Calcium 9.5 8.5 - 10.5 mg/dL LAB CHEMISTRY METHOD 08/15/2025 1:26 PM [facility] Blood Venous blood specimen / Unknown Venipuncture / Unknown 08/15/2025 12:42 PM EDT 08/15/2025 12:55 PM EDT Marcos Huddleston MD LAB BLOOD ORDERABLES Final Result [facility] [address] [place] [address], [place] [phone] from Last 3 Months Insurance [place]ICA[place] - [place]
--- OUTSIDE RECORDS SUMMARY | 2025-08-16 16:49 | XMS_ITS | Encounter Summary ---
Author Organization [facility] Address [address] [place] [address] Phone Care Team Providers Care Sausage Machine Operator Name Role Phone Juanita Savage HIGH SCHOOL ASSISTANT FOOTBALL COACH Primary Care Provider [phone] Encounter Details Date Type Department Care Team (Late st Contact Info) Description 06/06/[address] [facility] Family Medicine [address] [place], [place] [id number] Family Medicine, Physician [address] [place] [address] Social History Tobacco Use Types Packs/Day Years [...] on filedocumented in this encounter Care Teams Sausage Machine Operator Relationship Specialty Start Date End Date Juanita Savage NP [address] [place] [address] PCP - General Pediatrics 05/15/23 documented as of this encounter
--- OUTSIDE RECORDS SUMMARY | 2025-08-16 16:49 | XMS_ITS | Encounter Summary ---
Author Organization [facility] Address [address] [place] [address] Phone Care Team Providers Care Operations Tech Name Role Phone Juanita Savage MARKETING COMMUNICATIONS COORDINATOR Primary Care Provider [phone] Encounter Details Date Type Department Care Team (Late st Contact Info) Description 10/25/2010 Documentation [facility] Family Medicine [address] [place], [place] [id number] Family Medicine, Physician [address] [place] [address] Social History Tobacco Use Types Packs/Day Years [...] on filedocumented in this encounter Care Teams Operations Tech Relationship Specialty Start Date End Date Juanita Savage NP [address] [place] [address] PCP - General Pediatrics 05/15/23 documented as of this encounter
--- OUTSIDE RECORDS SUMMARY | 2025-08-16 16:49 | XMS_ITS | Encounter Summary ---
Author Organization [facility] Address [address] [place] [address] Phone Care Team Providers Care Bolt Machine Operator Name Role Phone LuisgavinJuanita QUANTITATIVE ASSOCIATE Primary Care Provider [phone] Reason for Visit * Reason Comments Med Refill Encounter Details Date Type Department Care Team (Late st Contact Info) Description 05/10/2018 Refill [facility] - [address] [address] Justin Enciso MD Generalized anxiety disorder Social History Tobacco Use Types Packs/Day Years Used Date Smoking Tobacco: Never Comments:Never smoker Comments Unknown Sex and Gender Information Value Date Recorded Sex Assigned at Not on file Legal Sex Female 4:55 PM EDT Gender Identity Other 09/25/2022 3:18 AM EDT Sexual Orientation Not on file documented as of this encounter Miscellaneous Notes * Telephone Encounter - Justin Enciso MD - 05/10/2018 5:25 PM EDT Reordered with zero refills. Please call mother. Should be having follow up every three months. No more refills until I see in the office * Telephone Encounter - Mary Harden LPN - 05/10/2018 7:27 AM EDT Refill request for Sertraline. Last PE 06/15/18, last FU 02/03/18/MIKAELA documented in this encounter Plan of Treatment Not on file documented as of this encounter Visit Diagnoses Diagnosis Generalized anxiety disorder documented in this encounter Care Teams Bolt Machine Operator Relationship Specialty Start Date End Date Juanita Savage NP [address] [place] [address] PCP - General Pediatrics 05/15/23 documented as of this encounter
--- OUTSIDE RECORDS SUMMARY | 2025-08-16 16:49 | XMS_ITS | Encounter Summary ---
Author Organization [facility] Address [address] [place] [address] Phone Care Team Providers Care Rolling Mill Operator Helper Name Role Phone Juanita Savage BUS AND TROLLEY DISPATCHER Primary Care Provider [phone] Encounter Details Date Type Department Care Team (Late st Contact Info) Description 04/10/2012 Documentation [facility] Family Medicine [address] [place], [place] [id number] Family Medicine, Physician [address] [place] [address] Social History Tobacco Use Types Packs/Day Years [...] on filedocumented in this encounter Care Teams Rolling Mill Operator Helper Relationship Specialty Start Date End Date Juanita Savage NP [address] [facility] [place] [address] PCP - General Pediatrics 05/15/23 documented as of this encounter
--- OUTSIDE RECORDS SUMMARY | 2025-08-16 16:49 | XMS_ITS | Encounter Summary ---
Author Organization [facility] Address [address] [place] [address] Phone Care Team Providers Care Hotel Lobby Concierge Name Role Phone Juanita Savage LASTING MACHINE OPERATOR Primary Care Provider [phone] Reason for Visit * Reason Comments Med Refill Encounter Details Date Type Department Care Team (Late st Contact Info) Description 07/22/2019 Refill [facility] [address] [facility] [place] [address] Renae Velasquez MD [address] [place] [id number] Anxiety; Anxiety with depression; Anxiety and depression Social History Tobacco Use Types Packs/Day Years [...] as of this encounter Visit Diagnoses Diagnosis Anxiety Anxiety state, unspecified Anxiety with depression Anxiety and depression documented in this encounter Care Teams Hotel Lobby Concierge Relationship Specialty [place] [address] [place] [address] [place] [address] PCP - General Pediatrics 05/15/23 documented as of this encounter
--- OUTSIDE RECORDS SUMMARY | 2025-08-16 16:49 | XMS_ITS | Encounter Summary ---
Author Organization [facility] Address [address] [place] [address] Phone Care Team Providers Care Night Manager Name Role Phone Juanita Savage NP Primary Care Provider [phone] Reason for Visit * Reason Comments Med Refill Encounter Details Date Type Department Care Team (Late st Contact Info) Description 08/26/2019 Refill [facility] [address] [facility] [place] [address] Renae Velasquez MD [address] [place] [address] Encounter for initial prescription of contraceptive pills Social History Tobacco Use Types Packs/Day Years Used Date Smoking Tobacco: Never Comments:Never smoker Comments No Sex and Gender Information Value Date Recorded Sex Assigned at Not on file Legal Sex Female 4:55 PM EDT Gender Identity Other 09/25/2022 3:18 AM EDT Sexual Orientation Not on file documented as of this encounter Miscellaneous Notes * Telephone Encounter - Libia Pratt LPN - 08/26/2019 12:20 PM EDT Pt now having depo shots, no longer takes these meds documented in this encounter Plan of Treatment Not on file documented as of this encounter Visit Diagnoses Diagnosis Encounter for initial prescription of contraceptive pills documented in this encounter Care Teams Night Manager Relationship Specialty Start Date End Date Juanita Savage NP [facility] [facility] [place] [address] PCP - General Pediatrics 05/15/23 documented as of this encounter
--- OUTSIDE RECORDS SUMMARY | 2025-08-16 16:49 | XMS_ITS | Encounter Summary ---
Author Organization [facility] Address [address] [place] [address] Phone Care Team Providers Care Color Mixer Name Role Phone Juanita Savage SURGICAL PRODUCT SALES CONSULTANT Primary Care Provider [phone] Reason for Visit * Reason Comments Med Refill Encounter Details Date Type Department Care Team (Late st Contact Info) Description 08/15/2019 Refill [facility] [address] [facility] [address] Renae Velasquez MD [address] [place] [address] Depression, unspecified depression type Social History Tobacco Use Types Packs/Day Years [...] as of this encounter Visit Diagnoses Diagnosis Depression, unspecified depression type documented in this encounter Care Teams Color Mixer Relationship Specialty Start Date End Date Juanita Savage NP [address] [facility] [address] PCP - General Pediatrics 05/15/23 documented as of this encounter
--- OUTSIDE RECORDS SUMMARY | 2025-08-16 16:49 | XMS_ITS | Encounter Summary ---
Author Organization [facility] Address [address] [place] [address] Phone Care Team Providers Care Corn Shucker Name Role Phone Juanita Savage CLAIMS ADJUSTER SUPERVISOR Primary Care Provider [phone] Encounter Details Date Type Department Care Team (Late st Contact Info) Description 03/25/2012 Documentation [facility] [address] [place], [place] [id number] Family Medicine, Physician [address] [place] [address] Social History Tobacco Use Types Packs/Day Years [...] on filedocumented in this encounter Care Teams Corn Shucker Relationship Specialty Start Date End Date Juanita Savage NP [address] [facility] [place] [address] PCP - General Pediatrics 05/15/23 documented as of this encounter
--- OUTSIDE RECORDS SUMMARY | 2025-08-16 16:49 | XMS_ITS | Encounter Summary ---
Author Organization [facility] Address [address] [place] [address] Phone Care Team Providers Care School Teacher Name Role Phone Juanita Savage SPECIAL SERVICE OFFICER Primary Care Provider [phone] Encounter Details Date Type Department Care Team (Late st Contact Info) Description 05/30/2013 Documentation [facility] [place] Family Medicine [address] [place], [place] [id number] Family Medicine, Physician [address] [place] [address] Social History Tobacco Use Types Packs/Day Years [...] on filedocumented in this encounter Care Teams School Teacher Relationship Specialty Start Date End Date Juainta Savage NP [address] [place] [address] PCP - General Pediatrics 05/15/23 documented as of this encounter
--- OUTSIDE RECORDS SUMMARY | 2025-08-16 16:49 | XMS_ITS | Encounter Summary ---
Author Organization [facility] Address [address] [place] [address] Phone Care Team Providers Care Hospital Mortician Name Role Phone Juanita Savage RELATIONSHIP MANAGER Primary Care Provider Encounter Details Date Type Department Care Team (Late st Contact Info) Description 04/26/2012 Documentation [facility] [place] [address] [place], [place] [id number] Family Medicine, Physician [address] [place] [address] Social History Tobacco Use Types Packs/Day Years [...] on filedocumented in this encounter Care Teams Hospital Mortician Relationship Specialty Start Date End Date Juanita Savage NP [address] [place] [address] PCP - General Pediatrics 05/15/23 documented as of this encounter
--- OUTSIDE RECORDS SUMMARY | 2025-08-16 16:49 | XMS_ITS | Encounter Summary ---
Author Organization [facility] Address [address] [place] [address] Phone Care Team Providers Care Photography Assistant Name Role Phone Juanita Savage COTTON TIER Primary Care Provider [phone] Encounter Details Date Type Department Care Team (Late st Contact Info) Description 07/12/2017 Conversion Encounter [facility] - [address] [address] Social History Tobacco Use Types Packs/Day Years [...] on filedocumented in this encounter Care Teams Photography Assistant Relationship Specialty Start Date End Date Juanita Savage NP [address] [facility] [place] [address] PCP - General Pediatrics 05/15/23 documented as of this encounter
[2025-08-16 16:51] LABS: Cannabinoid Screen Urine Not Detected (Not Detect)
--- NOTE | 2025-08-16 16:51 | PC.NURSE ---
Pt comes to ED today from home s/p seizure. Per EMS, Pts family reports 2 witnessed seizures. On arrival, Pt appeared postictal (confused, uncoordinated) and proceeded to have a third subsequent seizure. Pt tachycardic and complaining of GRAF and chest pain. Pt seen at [facility] ED yesterday for chest pain and was treated for anxiety. No known Hx seizures. On arrival Pt is A&Ox3. Her speech is simple and often uses on word answers. She appears anxious and is tearful/fearful stating she is worried she will . She demonstrates appropriate use of all her extremities. Skin is warm and dry Oral mucosa is dry, lips are dry. BP stable, slightly tachy She denies substance abuse--reporting sobriety x8 yrs. 20g placed to LAC IVF per JAN. Bed wong used without difficulty. Pt resting quiety with family at bedside.
[2025-08-16 17:00] LABS: Alanine Aminotransferase 17 U/L (0-31); Albumin Level 4.6 g/dL (3.5-5.0); Alkaline Phosphatase 47 U/L (39-117); Anion Gap 10 (12-20); Aspartate Amino Transferase 20 U/L (5-31); Blood Urea Nitrogen 6 mg/dL (9-16); Calcium 9.4 mg/dL (8.4-10.2); Carbon Dioxide 25 mmol/L (22-29); Chloride 109 mmol/L (96-108); Creatinine Clr Calc Pharmacy 140.3; Estimated Glomerular Filt Rate > 60; Magnesium 2.1 mg/dL (1.6-2.6); Potassium 3.6 mmol/L (3.3-5.1); Sodium 140 mmol/L (135-145); Total Protein 7.2 g/dL (6.5-8.0)
[2025-08-16 17:01] LABS: Troponin-I High Sensitivity < 2.7 ng/L (<3.5-17.0)
[2025-08-16] MEDS: iohexoL 350 MG/ML 100 ML INFUS..BTL IV (17:32)
[2025-08-16] MEDS: diazePAM 10 MG/2 ML CARTRIDGE 5 MG IVPUSH (18:23)
--- NOTE | 2025-08-16 18:29 | PC.NURSE ---
Pt reports feeling scare and anxious. She is tearful and reports she doesn't understand why she feels the way she feels. Pt agreeable to try medication to help relax and relieve her anxiety. Pt medicated per MAR.
[2025-08-16 18:45] VITALS: BP 116/74; PULSE 93; RESP 18; TEMP 37.1; O2SAT 100
[2025-08-16 20:13] LABS: Troponin-I High Sensitivity < 2.7 ng/L (<3.5-17.0)
[2025-08-16 20:57] VITALS: BP 126/79; PULSE 111; RESP 16; TEMP 36.9; O2SAT 99
[2025-08-16 21:07] VITALS: BP 126/79; PULSE 111; RESP 16; TEMP 36.9; O2SAT 99
== END 2025-08-16 21:09 | disposition home or self-care (01) ==
PROVIDERS: Physician Assistant; Emergency Provider Student in an Organized Health Care Education/Training Program; PCP Pediatrics
DX: R56.9 Unspecified convulsions (principal); R07.89 Other chest pain; R11.0 Nausea; Z51.81 Encounter for therapeutic drug level monitoring; Z79.899 Other long term (current) drug therapy
CPT/HCPCS: 36415; 70450; 71275; 80053; 80307; 81003; 83735; 84484; 84702; 85025; 85610; 85730; 93005; 96361; 96374; 99285; J3360; Q9967

== ENCOUNTER → 2025-08-16 16:03 | Outpatient (BNV) | payer OTHER, SELFPAY | PROVIDERS: Emergency Provider Student in an Organized Health Care Education/Training Program; PCP Pediatrics; Visit Provider Radiology Diagnostic Radiology | DX: R07.9 Chest pain, unspecified (principal); R56.9 Unspecified convulsions | CPT/HCPCS: 70450; 71275 ==

== ENCOUNTER → 2025-08-16 16:05 | Outpatient (BNV) | payer OTHER, SELFPAY | PROVIDERS: Emergency Provider Student in an Organized Health Care Education/Training Program; PCP Pediatrics; Visit Provider Internal Medicine Cardiovascular Disease | DX: I49.9 Cardiac arrhythmia, unspecified (principal) | CPT/HCPCS: 93010 ==

== ENCOUNTER 2025-10-05 22:56 | Emergency (ER) | payer OTHER, SELFPAY ==
--- NOTE | 2025-10-05 | ECG_ITS ---
Test Reason : PALPITATIONS Blood Pressure : */* mmHG Vent. Rate : 115 BPM Atrial Rate : 115 BPM P-R Int : 172 ms QRS Dur : 84 ms QT Int : 308 ms P-R-T Axes : 70 47 27 degrees QTcB Int : 426 ms Sinus tachycardia Possible Left atrial enlargement Borderline ECG When compared with ECG of 16-Aug-2025 17:08, No significant change was found Referred By: Generic ED Physician Electronically Signed By: DENAE ZHU MD
[2025-10-05 23:03] VITALS: BP 121/64; PULSE 124; RESP 15; O2SAT 97; BMI 21.4
[2025-10-05 23:13] VITALS: O2SAT 97
--- OUTSIDE RECORDS SUMMARY | 2025-10-05 23:34 | XMS_ITS | Encounter Summary ---
Author Organization [facility] Address [address] [place] [address] Phone Care Team Providers Care Agriculture Extension Specialist Name Role Phone Juanita Savage [place] ATTORNEY Primary Care Provider [phone] Reason for Visit * Reason Comments Med Refill Encounter Details Date Type Department Care Team (Late st Contact Info) Description 08/15/2019 Refill [facility] [address] [facility] [place] [address] Renae Velasquez MD [address] [place] [address] Depression, unspecified depression type Social History Tobacco Use Types Packs/Day Years Used Date Smoking Tobacco: Never Comments:Never smoker Comments No Sex and Gender Information Value Date Recorded Sex Assigned at Not on file Legal Sex Female 4:55 PM EDT Gender Identity Not Listed 09/25/2022 3:18 AM EDT Sexual Orientation Not on file documented as of this encounter Plan of Treatment Not on file documented as of this encounter Visit Diagnoses Diagnosis Depression, unspecified depression type documented in this encounter Care Teams Agriculture Extension Specialist Relationship Specialty Start Date End Date Juanita Savage NP [address] [facility] [place] [address] PCP - General Pediatrics 05/15/23 documented as of this encounter
--- OUTSIDE RECORDS SUMMARY | 2025-10-05 23:34 | XMS_ITS | Encounter Summary ---
Author Organization [facility] Address [address] [place] [address] Phone Care Team Providers Care Medical Representative Name Role Phone Juanita Savage NAPRAPATH Primary Care Provider [phone] Reason for Visit * Reason Comments Med Refill Encounter Details Date Type Department Care Team (Late st Contact Info) Description 05/10/2018 Refill [facility] - [address] [address] Justin Enciso MD Generalized anxiety disorder Social [...] disorder documented in this encounter Care Teams Medical Representative Relationship Specialty Start Date End Date Juanita Savage NP [address] [facility] [place] [address] PCP - General Pediatrics 05/15/23 documented as of this encounter
--- OUTSIDE RECORDS SUMMARY | 2025-10-05 23:34 | XMS_ITS | Encounter Summary ---
Author Organization [facility] Address [address] [place] [address] Phone Care Team Providers Care Rn Otolaryngology Name Role Phone Juanita Savage ULTRA SOUND TECHNICIAN Primary Care Provider [phone] Encounter Details Date Type Department Care Team (Late st Contact Info) Description 04/26/2012 Documentation [facility] [place] [address] [place], [place] [phone] Family Medicine, Physician [address] [place] [address] Social History Tobacco Use Types Packs/Day Years [...] on filedocumented in this encounter Care Teams Rn Otolaryngology Relationship Specialty Start Date End Date Juanita Savage NP [address] [facility] [place] [address] PCP - General Pediatrics 05/15/23 documented as of this encounter
--- OUTSIDE RECORDS SUMMARY | 2025-10-05 23:34 | XMS_ITS | Encounter Summary ---
Author Organization [facility] Address [address] [place] [address] Phone Care Team Providers Care Industrial Workers Name Role Phone Juanita Savage CATALOG LIBRARIAN Primary Care Provider Encounter Details Date Type Department Care Team (Late st Contact Info) Description 07/12/2017 Conversion Encounter [facility] - [address] [address] Social History Tobacco Use Types Packs/Day Years [...] on filedocumented in this encounter Care Teams Industrial Workers Relationship Specialty Start Date End Date Juanita Savage NP [address] [facility] [place] [address] PCP - General Pediatrics 05/15/23 documented as of this encounter
--- OUTSIDE RECORDS SUMMARY | 2025-10-05 23:34 | XMS_ITS | Encounter Summary ---
Author Organization [facility] Address [address] [place] [address] Phone Care Team Providers Care Health And Safety Coordinator Name Role Phone Juanita Savage POCKET MARKER Primary Care Provider [phone] Reason for Visit * Reason Comments Med Refill Encounter Details Date Type Department Care Team (Late st Contact Info) Description 07/31/2019 Refill [facility] [address] [place] [address] Renae Velasquez MD [address] [place] [address] Depression with anxiety Social History Tobacco Use [...] disorder documented in this encounter Care Teams Health And Safety Coordinator Relationship Specialty Start Date End Date Juanita Savage NP [address] [place] [address] [place] [address] PCP - General Pediatrics 05/15/23 documented as of this encounter
--- OUTSIDE RECORDS SUMMARY | 2025-10-05 23:34 | XMS_ITS | Encounter Summary ---
Author Organization [facility] Address [address] [place] [address] Phone Care Team Providers Care Macerator Operator Name Role Phone Juanita Savage PEDIATRIC RADIOLOGIST Primary Care Provider [phone] Encounter Details Date Type Department Care Team (Late st Contact Info) Description 06/06/2017 Documentation [facility] [place] Family Medicine [address] [place], [place] [id number] Family Medicine, Physician [address] [place] [address] Social History Tobacco Use Types Packs/Day Years [...] on filedocumented in this encounter Care Teams Macerator Operator Relationship Specialty Start Date End Date Juanita Savage NP [address] [facility] [place] [address] PCP - General Pediatrics 05/15/23 documented as of this encounter
--- OUTSIDE RECORDS SUMMARY | 2025-10-05 23:34 | XMS_ITS | Encounter Summary ---
Author Organization [facility] Address [address] [place] [address] Phone Care Team Providers Care Notereader Name Role Phone Juanita Savage DIRECTOR OF MEDICAL REVIEW Primary Care Provider [phone] Reason for Visit * Reason Comments Med Refill Encounter Details Date Type Department Care Team (Late st Contact Info) Description 07/22/2019 Refill [facility] [address] [facility] [place] [address] Renae Velasquez MD [address] [place] [address] Anxiety; Anxiety with depression; Anxiety and depression [...] depression documented in this encounter Care Teams Notereader Relationship Specialty Start Date End Date Juanita Savage NP [address] [facility] [place] [address] PCP - General Pediatrics 05/15/23 documented as of this encounter
--- OUTSIDE RECORDS SUMMARY | 2025-10-05 23:34 | XMS_ITS | Clinical Summary ---
Author Organization [facility] Address [address] [place] [address] Phone Care Team Providers Care Gizzard Skin Remover Name Role Phone Unavailable Primary Care Provider Unavailabl e Allergies Active Allergy Reactions Criticality Noted Date Comments Cat/Feline Products 08/15/2025 Dog Dander 08/15/2025 Other 08/15/2025 Cotton Seed Oil Medications No known medications Encounters Date Type Department Care Team Description 08/15/2025 12:20 PM EDT - 08/15/2025 3:45 PM EDT Emergency [facility] Emergency [address] [place] [address] Marcos Huddleston MD Chest pain, [...] to 49 Years) (1 of 1 - PPSV23, PCV20, or PCV21) 2009 02/03/2005, 08/26/2004, 03/28/2004, Additional history exists [...] Procedure Name Priority Date/Time Associated Diagnosis Comments ECG ANNOTATED 08/17/2025 XR CHEST 1 VIEW STAT 08/15/2025 1:00 [...] EDT from Last 3 Months Results * ECG-Annotated (08/17/2025) us Provider Onbase MD ECG ORDERABLES Final Result * XR Chest 1 View (08/15/2025 1:00 PM EDT) Anatomical Region Laterality Modality Body Radiographic Crystal ging 08/15/2025 1:18 PM EDT Impressions 08/15/2025 1:19 PM EDT No acute chest disease demonstrated -------- FINAL REPORT -------- Dictated By: Jose Mena Dictated Date: 08/15/2025 13:18 ET Assigned Physician: Jose Mena Reviewed and Electronically Signed By: Jose Mena Signed Date: 08/15/2025 13:19 ET Workstation ID: [id number] Transcribed By: Self Edit Transcribed Date: 08/15/2025 [...] Signed Date: 08/15/2025 13:19 ET Workstation ID: [id number] Transcribed By: Self Edit Transcribed Date: 08/15/2025 13:18 ET Marcos Huddleston MD IMG XR PROCEDURES Final Re sult * 12-Lead ECG (08/15/2025 12:48 PM EDT) Ventricular Rate ECG 130 BPM GEMUSE Atrial Rate 130 BPM GEMUSE P-R Interval 156 ms GEMUSE QRS Duration 72 ms GEMUSE Q-T Interval 270 ms GEMUSE QTc 397 ms GEMUSE P Wave Everett 71 degrees GEMUSE R Everett 59 degrees GEMUSE T Everett -18 degrees GEMUSE ECG Interpretation Sinus tachycardia Right atrial enlargement Possible Inferior infarct , age undetermined Cannot rule out Anterior infarct , age undetermined Abnormal ECG No previous ECGs available Confirmed by Matthew RUBI JAMES ([id number]) on 08/15/2025 10:28:03 PM GEMUSE 08/15/2025 12:4 8 PM EDT 08/15/2025 10:28 PM EDT Marcos Huddleston MD ECG ORDERABLES Final Resu lt Performing Organization Address [facility] Co de Phone Number GEMUSE * Troponin I High Sensitivity (08/15/2025 12:42 PM EDT) High Sensitivity Troponin I <3 <=54 ng/L LAB CHEMISTRY METHOD 08/15/2025 1:24 PM EDT [facility] Blood Venous blood specimen / Unknown Venipuncture / Unknown 08/15/2025 12:42 PM EDT 08/15/2025 12:55 PM EDT Narrative [facility] - 08/15/2025 1:24 PM EDT High levels of biotin in samples may falsely decrease hsTroponin values. Use caution when interpreting hsTroponin results in patients taking biotin who exhibit renal impairment (eGFR <60) or in patients taking more than 20 mg/day of biotin. Marcos Huddleston MD LAB BLOOD ORDERABLES Final Result Performing Organization Address [facility] Co de Phone Number [facility] [address] [place] [address], * Thyroid stimulating hormone with reflex to free t4 and free t3 (TSH Reflex) (08/15/2025 12:42 PM EDT) TSH 0.51 0.40 - 4.00 mcIU/mL LAB CHEMISTRY METHOD 08/16/2025 8:07 AM EDT [facility] Blood Venous blood specimen / Unknown Venipuncture / Unknown 08/15/2025 12:42 PM EDT 08/15/2025 12:55 PM EDT us Marcos Huddleston MD LAB BLOOD ORDERABLES Final Result [facility] [address] [place] [address], * (ABNORMAL) CBC auto differential (08/15/2025 12:42 PM EDT) WBC 10.2 4.8 - 10.8 K/mcL LAB HEMETOLOGY METHOD 08/15/2025 1:04 PM EDT [facility] RBC 4.70 3.80 - 4.80 M/mcL LAB HEMETOLOGY METHOD 08/15/2025 1:04 PM EDT [facility] Hemoglobin 14.2 11.5 - 16.0 g/dL LAB HEMETOLOGY METHOD 08/15/2025 1:04 PM EDT [facility] Hematocrit 42.8 35.0 - 47.0 % LAB HEMETOLOGY METHOD 08/15/2025 1:04 PM EDT [facility] MCV 91.1 79.0 - 98.0 FL LAB HEMETOLOGY METHOD 08/15/2025 1:04 PM EDT [facility] MCH 30.2 27.0 - 32.0 pcg LAB HEMETOLOGY METHOD 08/15/2025 1:04 PM EDT [facility] MCHC 33.2 32.0 - 37.0 g/dL LAB HEMETOLOGY METHOD 08/15/2025 1:04 PM EDT [facility] RDW 12.2 11.0 - 15.0 % LAB HEMETOLOGY METHOD 08/15/2025 1:04 PM EDT [facility] Platelets 268 130 - 400 K/mcL LAB HEMETOLOGY METHOD 08/15/2025 1:04 PM EDT [facility] MPV 11.0 7.0 - 11.0 FL LAB H[facility]OLOGY [facility] NRBC 0.0 <1.0 % LAB HEMETOLOGY METHOD 08/15/2025 1:04 PM [facility] NRBC Absolute 0.00 <0.10 K/mcL LAB HEMETOLOGY METHOD 08/15/2025 1:04 PM [facility] Neutrophils Relative 64.3 % LAB HEMETOLOGY METHOD 08/15/2025 1:04 PM [facility] Lymphocytes Relative 20.5 % LAB HEMETOLOGY METHOD 08/15/2025 1:04 PM [facility] Monocytes Relative 7.8 % LAB HEMETOLOGY METHOD 08/15/2025 1:04 PM [facility] Eosinophils Relative 6.4 % LAB HEMETOLOGY METHOD 08/15/2025 1:04 PM [facility] Basophils Relative 0.8 % LAB HEMETOLOGY METHOD 08/15/2025 1:04 PM [facility] Immature Granulocytes Relative 0.2 % LAB HEMETOLOGY METHOD 08/15/2025 1:04 PM [facility] Neutrophils Absolute 6.54 1.50 - 7.00 K/mcL LAB HEMETOLOGY METHOD 08/15/2025 1:04 PM [facility] Lymphocytes Absolute 2.08 1.00 - 5.00 K/mcL LAB HEMETOLOGY METHOD 08/15/2025 1:04 PM [facility] Monocytes Absolute 0.79 0.20 - 1.00 K/mcL LAB HEMETOLOGY METHOD 08/15/2025 1:04 PM [facility] Eosinophils Absolute 0.65(H) 0.00 - 0.50 K/mcL LAB HEMETOLOGY METHOD 08/15/2025 1:04 PM [facility] Basophils Absolute 0.08 0.00 - 0.20 K/mcL LAB HEMETOLOGY METHOD 08/15/2025 1:04 PM EDT [facility] Immature Granulocytes Absolute 0.02 0.00 - 0.03 K/mcL LAB HEMETOLOGY METHOD 08/15/2025 1:04 PM EDT [facility] Blood Venous blood specimen / Unknown Venipuncture / Unknown 08/15/2025 12:42 PM EDT 08/15/2025 12:55 PM EDT us Marcos Huddleston MD LAB BLOOD ORDERABLES Final Result Performing Organization Address City/[facility]/ZIP Co de Phone Number [facility] [address] [place] [address], [place] [phone] * D-Dimer (Quantitative) (08/15/2025 12:42 PM EDT) D-Dimer, Quant (D-DU) <150 <=230 ng/mL DDU LAB COAGULATION METHOD 08/15/2025 1:42 PM EDT [facility] Blood Venous blood specimen / Unknown Venipuncture / Unknown 08/15/2025 12:42 PM EDT 08/15/2025 12:55 PM EDT Narrative [facility] - 08/15/2025 1:42 PM EDT D-Dimer <230 ng/mL (D-Dimer units) is the threshold for exclusion of DVT/PE. D-Dimer may be elevated in: Critically ill, severely infected, trauma patients, DIC, acute CVA, acute GA, unstable angina, AF, old age, , and smoking. D-Dimer may be decreased with: Initiation of heparin therapy and oral anticoagulants. us Marcos Huddleston MD LAB BLOOD ORDERABLES Final Result Performing Organization Address City/[facility]/ZIP Co de Phone Number [facility] [address] [place] [address], [place] [phone] * HCG, quantitative (08/15/2025 12:42 PM EDT) hCG Quant <1 mIU/mL LAB CHEMISTRY METHOD 08/15/2025 1:28 PM EDT [facility] Blood Venous blood specimen / Unknown Venipuncture / Unknown 08/15/2025 12:42 PM EDT 08/15/2025 12:55 PM EDT Narrative [facility] - 08/15/2025 1:28 PM EDT Quantitative HCG Reference Ranges Time after Conception MIU/ML 0.2-1 Week 5-50 1-2 Weeks 50-500 2-3 Weeks 100-5,000 3-4 Weeks 500-10,000 4-5 Weeks 1,000-50,000 5-6 Weeks 10,000-100,000 6-8 Weeks 15,000-200,000 2-3 Months 10,000-100,000 2nd Trimester 1,000-94,000 3rd Trimester 2,500-90,000 Non- Females 1-3 us Marcos Huddleston MD LAB BLOOD ORDERABLES Final Result [facility] [address] [place] [address], * Magnesium (08/15/2025 12:42 PM EDT) [facility] Magnesium 2.0 1.9 - 2.6 mg/dL LAB CHEMISTRY METHOD 08/15/2025 1:26 PM EDT [facility] Blood Venous blood specimen / Unknown Venipuncture / Unknown 08/15/2025 12:42 PM EDT 08/15/2025 12:55 PM EDT us Marcos Huddleston MD LAB BLOOD ORDERABLES Final Result [facility] [address] [place] [address], * Basic Metabolic Panel (BMP) (08/15/2025 12:42 PM EDT) Sodium 138 133 - 145 mmol/L LAB CHEMISTRY METHOD 08/15/2025 1:26 PM EDT [facility] Potassium 4.0 3.5 - 5.5 mmol/L LAB CHEMISTRY METHOD 08/15/2025 1:26 PM T [facility] Chloride 106 96 - 110 mmol/L LAB CHEMISTRY METHOD 08/15/2025 1:26 PM T [facility] CO2 26 21 - 32 mmol/L LAB CHEMISTRY METHOD 08/15/2025 1:26 PM [facility] Anion Gap 6 3 - 11 LAB CHEMISTRY METHOD 08/15/2025 1:26 PM [facility] Glucose 100 70 - 100 mg/dL LAB CHEMISTRY METHOD 08/15/2025 1:26 PM [facility] BUN 6 5 - 25 mg/dL LAB CHEMISTRY METHOD 08/15/2025 1:26 PM [facility] Creatinine 0.62 0.50 - 1.10 mg/dL LAB CHEMISTRY METHOD 08/15/2025 1:26 PM [facility] eGFR 130 >=60 mL/min/1. 73m2 LAB CHEMISTRY METHOD 08/15/2025 1:26 PM [facility] Comment:Calculation based on the Chronic Kidney Disease Epidemiology Collaboration (CKD-EPI) equation refit without adjustment for race. BUN/Creatinine Ratio 9.7 LAB CHEMISTRY METHOD 08/15/2025 1:26 PM [facility] Calcium 9.5 8.5 - 10.5 mg/dL LAB CHEMISTRY METHOD 08/15/2025 1:26 PM [facility] Blood Venous blood specimen / Unknown Venipuncture / Unknown 08/15/2025 12:42 PM EDT 08/15/2025 12:55 PM EDT Marcos Huddleston MD LAB BLOOD ORDERABLES Final Result [facility] ([facility] [address] [place] [address], [place] [phone] from Last [address] [place] [address] HEALTH PLAN
--- OUTSIDE RECORDS SUMMARY | 2025-10-05 23:34 | XMS_ITS | Encounter Summary ---
Author Organization [facility] Address [address] [place] [address] Phone Care Team Providers Care Basketball Assembler Name Role Phone Juanita Savage NP Primary Care Provider [phone] Reason for Visit * Reason Comments Med Refill Encounter Details Date Type Department Care Team (Late st Contact Info) Description 08/26/2019 Refill [facility] [address] [place] [address] Renae Velasquez MD [address] [place] [address] Encounter for initial prescription of contraceptive pills [...] pills documented in this encounter Care Teams Basketball Assembler Relationship Specialty Start Date End Date Juanita Savage NP [facility] [place] [address] PCP - General Pediatrics 05/15/23 documented as of this encounter
--- OUTSIDE RECORDS SUMMARY | 2025-10-05 23:34 | XMS_ITS | Encounter Summary ---
Author Organization [facility] Address [address] [place] [address] Phone Care Team Providers Care Potable Water Treatment Operator Name Role Phone Juanita Savage BUSINESS SYSTEMS ANALYST Primary Care Provider [phone] Encounter Details Date Type Department Care Team (Late st Contact Info) Description 10/25/2010 Documentation [facility] Family Medicine [address] [place], [place] [id number] Family Medicine, Physician [address] [place] [address] Social History Tobacco Use Types Packs/Day Years [...] on filedocumented in this encounter Care Teams Potable Water Treatment Operator Relationship Specialty Start Date End Date Juanita Savage NP [address] [place] [address] PCP - General Pediatrics 05/15/23 documented as of this encounter
--- OUTSIDE RECORDS SUMMARY | 2025-10-05 23:34 | XMS_ITS | Encounter Summary ---
Author Organization [facility] Address [address] [place] [address] Phone Care Team Providers Care Farmworker Animal Name Role Phone Juanita Savage INDUSTRIAL EDUCATION TEACHER Primary Care Provider [phone] Reason for Visit * Reason Comments Med Refill Encounter Details Date Type Department Care Team (Late st Contact Info) Description 07/02/2020 Refill [facility] [address] [place] [address] Renae Velasquez MD [address] [place] [address] Uses control Social History Tobacco Use Types [...] [place] - 07/02/2020 9:[address] [facility] 11/27/[address] Macdonald documented in this encounter Plan of Treatment Not on file documented as of this encounter Visit Diagnoses Diagnosis Uses control documented in this encounter Care Teams Farmworker Animal Relationship Specialty Start Date End Date Juanita Savage NP [facility] [place] [address] PCP - General Pediatrics 05/15/23 documented as of this encounter
--- OUTSIDE RECORDS SUMMARY | 2025-10-05 23:34 | XMS_ITS | Encounter Summary ---
Author Organization [facility] Address [address] [place] [address] Phone Care Team Providers Care Recreational Programs Director Name Role Phone Juanita Savage POWDER LOADER Primary Care Provider [phone] Encounter Details Date Type Department Care Team (Late st Contact Info) Description 05/30/2013 Documentation [facility] Family Medicine [address] [place], [place] [phone] Family Medicine, Physician [address] [place] [address] Social History Tobacco Use Types Packs/Day Years [...] on filedocumented in this encounter Care Teams Recreational Programs Director Relationship Specialty Start Date End Date Juanita Savage NP [address] [place] [address] PCP - General Pediatrics 05/15/23 documented as of this encounter
--- OUTSIDE RECORDS SUMMARY | 2025-10-05 23:34 | XMS_ITS | Encounter Summary ---
Author Organization [facility] Address [address] [place] [address] Phone Care Team Providers Care Roll Contour Grinder Name Role Phone Juanita Savage HOOF TRIMMER Primary Care Provider [phone] Encounter Details Date Type Department Care Team (Late st Contact Info) Description 03/25/2012 Documentation [facility] Family Medicine [address] [place], [place] [id number] Family Medicine, Physician [address] [place] [address] Social History Tobacco Use Types Packs/Day Years [...] on filedocumented in this encounter Care Teams Roll Contour Grinder Relationship Specialty Start Date End Date Juanita Savage NP [address] [place] [address] PCP - General Pediatrics 05/15/23 documented as of this encounter
--- OUTSIDE RECORDS SUMMARY | 2025-10-05 23:34 | XMS_ITS | Encounter Summary ---
Author Organization [facility] Address [address] [place] [address] Phone Care Team Providers Care Instructional Material Director Name Role Phone Juanita Savage SOCIAL INSURANCE SPECIALIST Primary Care Provider [phone] Encounter Details Date Type Department Care Team (Late st Contact Info) Description 05/01/2017 Documentation [facility] Family Medicine [address] [place], [place] [phone] Family Medicine, Physician [address] [place] [address] Social History Tobacco Use Types Packs/Day Years [...] on filedocumented in this encounter Care Teams Instructional Material Director Relationship Specialty Start Date End Date Juanita Savage NP [address] [place] [address] PCP - General Pediatrics 05/15/23 documented as of this encounter
--- OUTSIDE RECORDS SUMMARY | 2025-10-05 23:34 | XMS_ITS | Clinical Summary ---
Author Organization [facility] Address [address] [place] [address] Phone Care Team Providers Care Finished Goods Stock Clerk Name Role Phone Juanita Savage PIGMENT PUSHER Primary Care Provider [phone] Allergies Active Allergy Reactions Criticality Noted Date [...] PM EDT): Pt presented for follow-up with [facility]. They wrote down notes on their phone [...] any negative side effects. Pt downloaded an vionne on the phone called [facility]- a place to track eating, sleeping, [...] more jobs- recently had an interview at [employer], and is applying to a few more [...] is focused on diagnoses given to them- [facility] is trying to support pt in not identifying with the actual diagnosis, rather the symptoms pt is experiencing. Pt will return in 1 week to meet with [facility] and discuss short-term tx planning- tasks for [...] that they might be interested in discussing. [facility] encouraged pt to make an appt with [...] without reliable transportation, they won't be considered. [facility] supported pt in being open-minded about other job opportunities- discussed arts and crafts stores and walking in the store in person to inquire about employment. Pt noted they will be starting at [employer] in the fall- looking forward to [...] Pt brought in her journal, shared with [facility]. Pt tends to journal at times when she is feeling strong emotions and intrusive thoughts. Documents BPD symptoms, looking for patterns, such as fear of abandonment. Pt notes that when there is too much down time, thoughts flood her brain- most negative. Pt denies SI and urges to self- harm - remains future focused. Planning to begin at [employer]- already enrolled and looking for free or discounted bus tickets for transportation. She is also looking for a job- would like to work with people with disabilities - [facility] suggested looking at [employer] for job postings. Pt continues to look for an outpatient therapist, but has not had any luck. [facility] will follow up with pt in 1 month Assessment & Plan (01/30/2023 4:30 PM EST): Pt reported getting into an argument with her father a week ago and hasn't spoke to him much since- was over something stupid . Pt took the bus to the appointment- something they have never done and noted that it wasn't as bad as they thought. [facility] praised pt for following through and utilizing resources/autonomy. 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 [facility] encouraged pt to continue to look for a residential therapist, which they plan to do. Will [...] matured immensley since first psychiatric admission and [facility] highlighted improvements- self and environmental. [facility] will follow up with pt in 3 [...] life. Pt has been seeing doctors at [facility] and feels comfortable there. [facility] inquired about pt accessing a therapist through [...] dissociative episodes. Pt will follow up with [facility] in 2 weeks Might bring the DBT [...] also needs to begin working with a long wall shear operator therapist. States they already have the phone [...] feeling in the moment, instead of journaling. [facility] listened to it- praised pt for using [...] discuss options. Pt will also need a residential therapist, as this service is short-term. Pt [...] AM EDT): Pt presents for follow-up with [facility]. Pt called office on Sunday endorsing bipin, [...] him, will be going to [employer] for a class or two, future [...] make your own. See Reva Gutierrez at [facility]. Gastroesophageal reflux disease 08/10/2017 Assessment & Plan [...] make your own. See Reva Gutierrez at [employer]. 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 Procedure Name Priority Date/Time Associated Diagnosis Comments CHLAMYDIA AND GONORRHEA, AMPLIFIED Routine 12/12/2022 5:18 PM EST Well adult exam from Last 3 Months or Most Recently Relevant to Health Maintenance Results * Due to [place] [employer] law, this organization might not be sharing sensitive test results. * Chlamydia and Gonorrhea, Amplified (12/12/2022 5:18 PM EST) Chlamydia Trachomatis, DNA Probe NEGATIVE (NEG) [facility] Comment: No Chlamydia Trachomatis RNA detected in this patient's sample (REFERENCE RANGE/NORMAL VALUE: NOT DETECTED) Note: This test uses manager hris- mediated amplification method to detect rRNA from C. Trachomatis URINE GC AMP PROBE NEGATIVE (NEG) [facility] Comment: No Neisseria Gonorrhoeae RNA detected in this patient's sample (REFERENCE RANGE/NORMAL VALUE: NOT DETECTED) NOTE: This test uses manager hris-mediated amplification method to detect rRNA from N.Gonorrhoeae. [...] without risk of sexual abuse. Consult the [facility] if needed. Contact phone number . Therapeutic failure or success cannot be determined with the Aptima Combo2 assay since nucleic acid may persist following appropriate antimicrobial therapy. The Centers for Disease Control and Prevention (CDC) recommends confirmatory retesting using culture or a different nucleic acid amplification test when positive results occur, if indicated. Testing performed or reported by [facility], a Service of [facility], [address] [place] [address] Anton Cote MD, Workforce Development Assistant [facility]# [id number] Urine (Urine) 12/12/2022 5:1 8 PM EST 12/12/2022 9:45 PM EST us Renae Velasquez MD LAB MICROBIOLOGY - GENERAL ORDER UMESH Final Result [facility] from Last 3 Months or Most Recently Relevant to Health Maintenance Insurance [facility] [place] [facility] BLUE CARD OUT OF STATE [facility] [place] [address] [facility] Liam [facility] [place] [place] [address] [facility] [address] [address] [place] [address] [facility] Care Teams Finished Goods Stock Clerk Relationship Specialty Start Date End Date Juanita Savage NP [address] [address] PCP - General Pediatrics 05/15/23
--- OUTSIDE RECORDS SUMMARY | 2025-10-05 23:34 | XMS_ITS | Encounter Summary ---
Author Organization [facility] Address [address] [place] [address] Phone Care Team Providers Care Microbiology Lab Assistant Name Role Phone Juanita Savage HOG RAISER Primary Care Provider [phone] Encounter Details Date Type Department Care Team (Late st Contact Info) Description 04/18/2011 [place] [facility] [place] [address] [place], [place] [id number] Family Medicine, Physician [address] [place] [address] Social History Tobacco Use Types Packs/Day Years [...] on filedocumented in this encounter Care Teams Microbiology Lab Assistant Relationship Specialty Start Date End Date Juanita Savage NP [address] [place] [address] PCP - General Pediatrics 05/15/23 documented as of this encounter
--- OUTSIDE RECORDS SUMMARY | 2025-10-05 23:34 | XMS_ITS | Encounter Summary ---
Author Organization [facility] Address [address] [place] [address] Phone Care Team Providers Care Tobacco Flavorer Name Role Phone Juanita Savage HOLISTIC NUTRITIONIST Primary Care Provider [phone] Encounter Details Date Type Department Care Team (Late st Contact Info) Description 11/07/2011 Documentation [facility] [place] [address] [place], [place] [id number] Family Medicine, Physician [address] [place] [address] Social History Tobacco Use Types Packs/Day Years [...] on filedocumented in this encounter Care Teams Tobacco Flavorer Relationship Specialty Start Date End Date Juanita Savage NP [address] [place] [address] PCP - General Pediatrics 05/15/23 documented as of this encounter
--- OUTSIDE RECORDS SUMMARY | 2025-10-05 23:34 | XMS_ITS | Encounter Summary ---
Author Organization [facility] Address [address] [place] [address] Phone Care Team Providers Care Knife Machine Operator Name Role Phone Juanita Savage CARDIO CLINICIAN Primary Care Provider [phone] Encounter Details Date Type Department Care Team (Late st Contact Info) Description 04/10/2012 [place] [facility] [place] [address] [place], [place] [id number] Family Medicine, Physician [address] [place] [address] Social History Tobacco Use Types Packs/Day Years [...] on filedocumented in this encounter Care Teams Knife Machine Operator Relationship Specialty Start Date End Date Juanita Savage NP [address] [place] [address] PCP - General Pediatrics 05/15/23 documented as of this encounter
--- NOTE | 2025-10-06 00:02 | PC.NURSE ---
This speech writer assumed care of this Pt at 2300. Pt refused IV/blood work for previous RN. Pt A&Ox3, significant other at bedside reports patient was past out for over 45 mins. Pt requesting to be discharged. States I have an appointment with cardiology for POTS diagnosis . Dr. Garza at bedside, informed Pt about risk of leaving without work up.
[2025-10-06 00:08] VITALS: BP 115/56; PULSE 118; RESP 18; TEMP 36.7; O2SAT 98
--- NOTE | 2025-10-06 00:08 | ED.SYNCOPE ---
HPI - Syncope General Chief Complaint: Syncope Stated Complaint: in and out of consciousness d/t pots Time Seen by Provider: 10/06/25 00:02 Source: patient and EMS Mode of arrival: EMS Limitations: no limitations History of Present Illness ED Provider: Dr. Sera Garza HPI narrative: Patient comes to the emergency room complaining of multiple episodes of syncope that started approximately 3 hours ago. Patient states that she was unconscious for approximately 45 minutes. When patient arrived, she complained of chest tightness, dizziness, palpitations, fluttering. Patient states that she has an appointment pending with cardiology in a few days, states that she is being worked up for pots but has not been diagnosed. Related Data Previous Rx's ?Medication ?Instructions ?Recorded albuterol sulfate 2.5 mg/3 mL 2.5 mg (3 mL) inhalation Q4-6H PRN 10/17/24 (0.083 %) solution for nebulization shortness of breath or wheezing #180 mL albuterol sulfate 90 mcg/actuation 2 puff inhalation Q4-6H PRN 10/17/24 aerosol inhaler shortness of breath or wheezing #8.5 grams amoxicillin 500 mg capsule 1,000 mg (2 x 500 mg) PO TID 5 10/17/24 days #30 caps azithromycin 250 mg tablet See Rx Instructions PO .COMPLEX #6 10/17/24 tabs Allergies Allergy/AdvReac Type Severity Reaction Status Date / Time No Known Allergies Allergy Verified 10/05/25 23:07 Review of Systems Review of Systems: Constitutional : No Weight loss, No Fever, No Chills, No Night Sweats, No Fatigue, No Malaise ENT/Mouth : No Hearing loss, No Ear Pain, No Nasal Congestion, No Sinus Pain, No Hoarseness, No sore throat, No Rhinorrhea, No Swallowing Difficulty Eyes: No Eye Pain, No Swelling, No Redness, No Foreign Body, No Discharge, No Vision Changes Cardiovascular : Complaining of chest pressure, dizziness, palpitations, multiple syncopal episodes Respiratory : No Cough, No Sputum, No Wheezing, No Smoke Exposure, No Dyspnea Gastrointestinal : No Nausea, No Vomiting, No Diarrhea, No Constipation, No abdominal Pain, No Hematochezia, No Melena Genitourinary : no irregular bleeding, No Dysuria, No Urinary Frequency, No Hematuria, No Urinary Incontinence, No Urgency, No Flank Pain, No Urinary Flow Changes, No Hesitancy Musculoskeletal : No joint pain, No Myalgias, No Joint Swelling Skin : No Skin Lesions, No rash Neuro : No Weakness, No Numbness, No Paresthesias, No Loss of Consciousness, No Dizziness, No Headache Psych : No Anxiety/Panic, No Depression, No SI/HI/AH/VH, No Social Issues, Heme/Lymph: No Bruising, No Bleeding,No Lymphadenopathy Endocrine : No Polyuria, No Polydipsia, No Temperature Intolerance [facility] Social History Social History Smoked in Last 30 Days: No Use of substances other than those prescribed or required for medical reasons: Yes Substance Use Type: Marijuana Substance Use Frequency: Daily Advance Directives: No Advance Directives Information Provided: Yes Do you have a plan to hurt others: No Plan Physical Exam Vital Signs: Vital Signs: Last Vital Signs Pulse 124 H 10/05/25 23:03 Resp 15 10/05/25 23:03 BP 121/64 10/05/25 23:03 Pulse Ox 97 10/05/25 23:13 O2 Del Method Room Air 10/05/25 23:13 BMI result Body Mass Index 21.4 Medical Decision Making Medical Decision Making [facility] Narrative: Before any workup was done, patient says that she got informed that her sister got involved in a car accident and needed to go with her. Patient refused any further workup and requested to be discharged. The situation is understandable why she needs to leave. However, I discussed with the patient that it is concerning that she has passed out multiple times as she explained, patient is tachycardic. Discussed with the patient that she may have a serious arrhythmia or a pulmonary embolism and without the proper workup, this can not be ruled out. Patient verbalizes understanding but states that she needs to leave. Patient is being against medical advice. Discharge Plan Discharge Clinical Impression: Tachycardia, Syncopal episodes Patient Disposition: Left Against Medical Advice Instructions: Syncope (ED), Tachycardia (ED) Additional Instructions: You declined any workup. Although you are being currently worked up by your networking technician for POTS, we still do not know why you are tachycardic and passing out. You may have a dangerous and life-threatening arrhythmia or pulmonary embolism/blood clot. Without a proper workup, this can not be ruled out. Please follow-up with your primary care physician tomorrow. If you have any worsening or new symptoms, please return to the emergency room or call 911 Prescriptions: No Action amoxicillin 500 mg capsule 1,000 mg PO TID 5 Days Qty: 30 0RF azithromycin 250 mg tablet See Rx Instructions .ROUTE .COMPLEX Qty: 6 0RF Rx Instructions: For 250 mg dose pack: take 500 mg today (day 1), then 250 mg for 4 days (days 2-5) albuterol sulfate 2.5 mg /3 mL (0.083 %) solution for nebulization 2.5 mg inhalation Q4-6H PRN (Reason: shortness of breath or wheezing) Qty: 180 0RF albuterol sulfate 90 mcg/actuation HFA aerosol inhaler 2 puff inhalation Q4-6H PRN (Reason: shortness of breath or wheezing) Qty: 8.5 0RF Print Language: Somali
[2025-10-06 00:28] VITALS: BP 115/56; PULSE 118; RESP 18; TEMP 36.7; O2SAT 98
== END 2025-10-06 00:29 | disposition left against medical advice (07) ==
PROVIDERS: Emergency Provider Emergency Medicine; PCP Pediatrics
DX: R55 Syncope and collapse (principal); Z53.29 Procedure and treatment not carried out because of patient's decision for other reasons
CPT/HCPCS: 93005; 99283; 99285

== ENCOUNTER → 2025-10-05 23:11 | Outpatient (BNV) | payer OTHER, SELFPAY | PROVIDERS: Emergency Provider Emergency Medicine; PCP Pediatrics; Visit Provider Internal Medicine Cardiovascular Disease | DX: R00.0 Tachycardia, unspecified (principal) | CPT/HCPCS: 93010 ==